=== PATIENT | male | born 1955 | race Caucasian/White ===

== ENCOUNTER 2017-12-14 11:46 | Observation (INO) | payer MEDICARE ==
[~2017-12-14] VITALS: Ht 172.7 cm; Wt 66.1 kg
--- NOTE | ~2017-12-14 | CN ---
PATIENT NAME:CATHERINE BETTS MEDICAL RECORD: [id number] : 59 LOCATION:D.M2 D.2140 ADMIT DATE: 12/15/17 ACCOUNT: [id number] CONSULTING PHYSICIAN: ALEKS MORRELL MD REFERRING PHYSICIAN: AR NOVA MD DATE OF CONSULTATION: 12/15/2017 CARDIOLOGY CONSULTATION DIAGNOSES: 1. Elevated troponin. 2. Multiple pain medications for chronic pain syndrome. 3. Smoking. HISTORY OF PRESENT ILLNESS: This is a gentleman who is followed by Dr. Shay for pain management, who has had adjustment in his medications recently. He had the addition of fentanyl to his multiple other medications for pain. He was brought in with decreased consciousness. Troponin was found to be elevated. He denies any chest pain or chest discomfort. His EKG is with no ST-T abnormalities. He has had no dysrhythmias. PHYSICAL EXAMINATION: GENERAL APPEARANCE: Well-nourished, well-developed, appears stated age. Level of distress, comfortable. PSYCHIATRIC: Mental status, alert, normal affect. Orientation, oriented to time, place and person. EYES: Lids and conjunctiva, noninjected. No discharge, no pallor. ENT: Lips, teeth, gums, normal dentition. Oropharynx, no cyanosis, no pallor. NECK: Carotid arteries, bilateral normal upstroke, no bruits, no thrills. JUGULAR VEINS: No jugular venous pressure or distention. CERVICAL LYMPH NODES: Nontender, nonenlarged. THYROID: Not enlarged. Nontender. No nodules. LUNGS: Respiratory effort, unlabored. CHEST: Normal curvature. No thoracic deformity. No chest wall tenderness. Percussion, resonant. Auscultation, clear. No wheezes, no rales, no rhonchi. CARDIOVASCULAR: Precordial exam, nondisplaced. No heaves or pericardial thrills. Rate and rhythm, regular. Heart sounds, normal S1, normal S2. No S3, no gallop, no rub. Systolic murmur, not heard. Diastolic murmur, not heard. EXTREMITIES: No cyanosis, no edema. Peripheral pulses, full and equal in all extremities, except as noted. No bruits appreciated. ABDOMEN: Soft, nondistended. Normal aorta. No bruit. Nontender. No masses. Liver, nontender, no hepatomegaly. Spleen, nontender, no splenomegaly. MUSCULOSKELETAL: No joint tenderness. No joint swelling. No erythema. NEUROLOGICAL: Normal gait, normal strength, normal tone. SKIN: Warm and dry. REVIEW OF SYSTEMS: The patient reports easy bruising but reports no swollen glands. The patient reports no fever, no night sweats, no significant weight gain, no significant weight loss. No significant exercise tolerance. The patient reports no dry eyes, no irritation, no vision change. Patient reports no difficulty hearing and no ear pain. Patient reports no frequent nose bleeds or nose and sinus problems. Patient reports on arm pain on exertion. No shortness of breath while lying down. No history of heart murmur. Patient reports no cough, no wheezing or coughing up blood. Patient reports no abdominal pain, no vomiting. Normal appetite. No diarrhea and not vomiting CONSULT REPORT [id number] CATHERINE BETTS blood. No nausea and no constipation. Patient reports no incontinence. No difficulty urinating. No hematuria. No increased frequency. Patient reports no muscle aches. No weakness, no arthralgias, no back pain. No swelling of the extremities. Patient reports no abnormal mole, no jaundice, no rashes. Reports no loss of consciousness. No weakness and no numbness. No seizures, dizziness, or headaches. The patient reports no depression, no sleep disturbance, feeling safe in a relationship and no alcohol abuse. Patient reports on fatigue. Reports no runny nose or sinus pressure. No itching, no hives, and no frequent sneezing. OVERALL IMPRESSION: Most likely this is an anoxic injury from decreased consciousness from over medication with pain medications. All pain medications are being held at this time. We will get an echocardiogram for LV function. Other than that, no other cardiac workup treatment is necessary. TRANSINT:[id number] Voice Confirmation ID: [id number] DOCUMENT ID: [id number] ALEKS MORRELL MD at 0928 CC: [id number] DICTATION DATE: 12/15/17 1008 PARA MACHINE OPERATOR: 12/15/17 1017 [place] [address]
--- NOTE | ~2017-12-14 | EC ---
PATIENT:CATHERINE BETTS DATE OF SERVICE: 12/14/17 SEX: M MEDICAL RECORD: [id number] DATE OF : 59 LOCATION:D.M2 D.214 AGE OF PATIENT: 62 ADMISSION DATE: 12/14/17 REFERRING PHYSICIAN: INTERPRETING PHYSICIAN: ALEKS HAMMOND MD ECHOCARDIOGRAM REPORT ECHO CHARGES 4 ECHO COMPLETE CLINICAL DIAGNOSIS: ELEVATED TROPONIN ASSESS EF AND VALVES ECHOCARDIOGRAPHIC MEASUREMENTS (adult normal given) AC root (d.<3.7cm) 3.8 cm LV Septum d (<1.2 cm> 1.2 cm Valve Excursion 1.8 cm LV Septum (systole) 1.4 cm Left Atria (s.<4.0cm> 3.3 cm LVPW d(<1.2cm) 1.8 cm RV (d.<2.3cm) 3.3 cm LVPW (sytole) 1.9 cm LV diastole(<5.6CM) 5.0 cm MV E-F(>70mm/sec) cm LV systole 3.8 cm LVOT Diameter 2.1 cm MV exc.(>10mm) cm Est.ejection fraction (50-75%) % Pericardial Effusion N DOPPLER: LVIT cm/sec A 119 cm/sec E 82.0 cm/sec LA cm/sec RVSP 41 mmHg LVOT 161 cm/sec AOP1/2T m/s Asc. Ao 194 cm/sec RVOT cm/sec RA cm/sec PA cm/sec AV Gradient Peak 15.05mmHg AV Mean 8.08 mmHg AV Area 2.9 cm MV Gradient Peak 6.99 mmHg MV Mean 2.46 mmHg MV Area cm COMMENTS: Continuous Process Machine Operator: Jace LEIGH School Examiner: 1 Dr. Hammond TAPE# PACS DATE OF SERVICE: 12/15/2017 Echocardiogram FINDINGS: 1. Left ventricular chamber size is within normal limits. Left ventricular systolic function is normal. Overall ejection fraction estimated at 60%. 2. Left atrium, right atrium, and right ventricle chamber sizes are within normal limits. 3. Valvular structures have normal structure and motion. ECHOCARDIOGRAM REPORT [id number] CATHERINE BETTS 4. Doppler interrogation reveals only trace to mild tricuspid regurgitation, no other valvular insufficiency or stenosis. 5. No evidence of pericardial effusion or left ventricular thrombus. TRANSINT:[id number] Voice Confirmation ID: [id number] DOCUMENT ID: [id number] ALEKS HAMMOND MD at 1148 CC: [id number] DICTATION DATE: 12/15/17 1244 CVICU RN: 12/15/17 1300 DIS IN 12/17/17 [place] [id number] [place] [id number]
[~2017-12-14 11:46] MED LIST: HYDROCODONE-APA1 TAB PO; LEVAQUIN750 MG PO; LISINOPRIL10 MG PO; PRINZIDE 20-251 TA1 PO; PROTONIX40 MG PO; ROBAXIN500 MG PO; TEMAZEPAM30 MG PO; XANAX0.5 MG PO
[2017-12-14 12:57] LABS: AMORPHOUS SEDIMENT >1+ /lpf (NONE SEEN); APPEARANCE CLOUDY (CLEAR); BACTERIA FEW /hpf (NONE SEEN); BILIRUBIN NEGATIVE (NEGATIVE); COLOR YELLOW (YELLOW); EPITHELIAL CELLS 0-5 /hpf (0-5); GLUCOSE NEGATIVE (NEGATIVE); KETONE NEGATIVE (NEGATIVE); NITRITE NEGATIVE (NEGATIVE); PROTEIN TRACE mg/dL (NEGATIVE); SPECIFIC GRAVITY 1.015 (1.005-1.020); UROBILINOGEN NORMAL (NORMAL); WHITE CELLS - URINE RARE /hpf (0-5)
[2017-12-14 12:59] LABS: UDS - AMPHET NEGATIVE QUAL (NEGATIVE); UDS - BARB NEGATIVE QUAL (NEGATIVE); UDS - BENZO POSITIVE QUAL (NEGATIVE); UDS - COCAINE NEGATIVE QUAL (NEGATIVE); UDS - OPIATE POSITIVE QUAL (NEGATIVE); UDS - PCP NEGATIVE QUAL (NEGATIVE); UDS - THC NEGATIVE QUAL (NEGATIVE)
[2017-12-14 13:00] LABS: ALBUMIN 3.7 g/dL (3.4-5.0); ALKALINE PHOSPHATASE 116 U/L (46-116); ALT (SGPT) 35 U/L (10-68); BILIRUBIN - TOTAL 0.51 mg/dL (0.2-1.3); CALC OSMOLALITY 278 mosm/kg (275-300); CALCIUM 9.2 mg/dL (8.5-10.1); CHLORIDE - SERUM 101 mmol/L (98-107); GLUCOSE 130 mg/dL (74-106); POTASSIUM - SERUM 3.7 mmol/L (3.5-5.1); PROTEIN - SERUM 8.5 g/dL (6.4-8.2); SODIUM 138 mmol/L (136-145); UREA NITROGEN 14 mg/dL (7-18); eGFR NON AFRICAN AMERICAN 81 mL/min (90-120)
[2017-12-14 13:11] LABS: LIPASE 52 U/L (73-393); PRO BNP 1139 pg/mL (0-125)
[2017-12-14 13:17] LABS: TROPONIN-I 0.127 ng/mL (0.000-0.060)
[2017-12-14 13:34] LABS: HEMATOCRIT 42.5 % (42.0-54.0); HEMOGLOBIN 14.4 g/dL (13.5-17.5); MCH 31.2 pg (26.0-34.0); MCHC 33.9 g/dL (31.0-37.0); RBC 4.62 10x6/uL (4.20-6.10); RDW 12.6 % (11.5-14.5); WBC 30.2 10x3/uL (4.8-10.8)
[2017-12-14 13:35] LABS: PLATELET COUNT 492 10x3/uL (130-400)
[2017-12-14 13:37] LABS: LYMPHOCYTES 7 % (15-50); MONOCYTES 7 % (2-11); NEUTROPHILS 81 % (40-80); PLATELET ESTIMATE INCREASED
[2017-12-14] MEDS ORDERED: DURAGESIC1 PATCH .1 TRANSDERM (15:58)
[2017-12-14] MEDS ORDERED: NORCO 7.5/325 T1 TA1 PO (15:58)
[2017-12-14] MEDS ORDERED: VALIUM10 MG PO (16:01)
[2017-12-14] MEDS ORDERED: ZOLOFT50 MG PO (16:02)
[2017-12-14 16:03] VITALS: BP 168/84; Ht 172.7 cm; Wt 66.1 kg
[2017-12-14 19:00] VITALS: BP 145/65
[2017-12-14 22:45] LABS: APPEARANCE CLEAR (CLEAR); COLOR YELLOW (YELLOW); SPECIFIC GRAVITY 1.015 (1.005-1.020)
[2017-12-14 22:46] LABS: AMORPHOUS SEDIMENT <1+ /lpf (NONE SEEN); BACTERIA MODERATE /hpf (NONE SEEN); BILIRUBIN NEGATIVE (NEGATIVE); EPITHELIAL CELLS 0-5 /hpf (0-5); GLUCOSE NEGATIVE (NEGATIVE); HYALINE CAST 0-5 /lpf (NONE SEEN); KETONE NEGATIVE (NEGATIVE); MUCUS <1+ /lpf (NONE SEEN); NITRITE NEGATIVE (NEGATIVE); PROTEIN NEGATIVE (NEGATIVE); SPERMATOZOA RARE /hpf (NONE SEEN); UROBILINOGEN NORMAL (NORMAL); WHITE CELLS - URINE OCC /hpf (0-5)
[2017-12-15] VITALS: BP 162/75
[2017-12-15 04:00] VITALS: BP 144/68
[2017-12-15 07:44] LABS: HEMATOCRIT 36.2 % (42.0-54.0); HEMOGLOBIN 12.4 g/dL (13.5-17.5); LYMPHOCYTES 17.2 % (15-50); MCH 31.2 pg (26.0-34.0); MCHC 34.3 g/dL (31.0-37.0); MEAN PLATELET VOLUME 9.9 fL (7.4-10.4); NEUTROPHILS 75.4 % (40-80); RBC 3.98 10x6/uL (4.20-6.10)
[2017-12-15 07:48] LABS: PLATELET COUNT 347 10x3/uL (130-400); WBC 15.8 10x3/uL (4.8-10.8)
[2017-12-15 08:37] LABS: ALBUMIN 3.1 g/dL (3.4-5.0); ALKALINE PHOSPHATASE 90 U/L (46-116); ALT (SGPT) 38 U/L (10-68); BILIRUBIN - TOTAL 0.44 mg/dL (0.2-1.3); CALC OSMOLALITY 277 mosm/kg (275-300); CALCIUM 8.4 mg/dL (8.5-10.1); CHLORIDE - SERUM 104 mmol/L (98-107); CREATININE - SERUM 0.8 mg/dL (0.6-1.3); GLUCOSE 101 mg/dL (74-106); PROTEIN - SERUM 6.6 g/dL (6.4-8.2); SODIUM 140 mmol/L (136-145); UREA NITROGEN 11 mg/dL (7-18); eGFR NON AFRICAN AMERICAN > 90 mL/min (90-120)
[2017-12-15 09:25] VITALS: BP 132/84
[2017-12-15 11:46] VITALS: BP 132/80
[2017-12-15 16:11] VITALS: BP 126/88
[2017-12-15 20:00] VITALS: BP 118/54
[2017-12-16] VITALS: BP 112/58
[2017-12-16 04:00] VITALS: BP 118/60
[2017-12-16 06:36] LABS: BASOPHILS 0.3 % (0-2); EOSINOPHILS 0.5 % (0-7); IMMATURE GRANULOCYTES 0.2 % (0-5); LYMPHOCYTES 20.6 % (15-50); MCH 30.8 pg (26.0-34.0); MCHC 33.3 g/dL (31.0-37.0); MCV 92.4 fL (80.0-100.0); MEAN PLATELET VOLUME 10.5 fL (7.4-10.4); MONOCYTES 11.7 % (2-11); NEUTROPHILS 66.7 % (40-80); PLATELET COUNT 333 10x3/uL (130-400); RBC 3.57 10x6/uL (4.20-6.10); RDW 12.4 % (11.5-14.5); WBC 12.7 10x3/uL (4.8-10.8)
[2017-12-16 07:05] LABS: ALBUMIN 2.9 g/dL (3.4-5.0); ALKALINE PHOSPHATASE 82 U/L (46-116); ALT (SGPT) 40 U/L (10-68); CALC OSMOLALITY 280 mosm/kg (275-300); CALCIUM 8.3 mg/dL (8.5-10.1); CARBON DIOXIDE 25.9 mmol/L (21.0-32.0); CHLORIDE - SERUM 107 mmol/L (98-107); CREATININE - SERUM 0.6 mg/dL (0.6-1.3); GLUCOSE 92 mg/dL (74-106); POTASSIUM - SERUM 3.1 mmol/L (3.5-5.1); PROTEIN - SERUM 6.5 g/dL (6.4-8.2); SODIUM 142 mmol/L (136-145); eGFR NON AFRICAN AMERICAN > 90 mL/min (90-120)
[2017-12-16 07:06] LABS: UREA NITROGEN 6 mg/dL (7-18)
[2017-12-16 16:00] VITALS: BP 111/45
[2017-12-16 19:00] VITALS: BP 83/51
[2017-12-17 04:00] VITALS: BP 148/63
[2017-12-17 05:28] LABS: BASOPHILS 0.2 % (0-2); EOSINOPHILS 0.9 % (0-7); HEMATOCRIT 31.5 % (42.0-54.0); HEMOGLOBIN 10.5 g/dL (13.5-17.5); IMMATURE GRANULOCYTES 0.2 % (0-5); LYMPHOCYTES 15.9 % (15-50); MCHC 33.3 g/dL (31.0-37.0); MCV 92.9 fL (80.0-100.0); MEAN PLATELET VOLUME 10.9 fL (7.4-10.4); MONOCYTES 9.9 % (2-11); NEUTROPHILS 72.9 % (40-80); PLATELET COUNT 345 10x3/uL (130-400); RBC 3.39 10x6/uL (4.20-6.10); RDW 12.6 % (11.5-14.5); WBC 12.3 10x3/uL (4.8-10.8)
[2017-12-17 05:43] LABS: ALBUMIN 2.8 g/dL (3.4-5.0); ALKALINE PHOSPHATASE 78 U/L (46-116); ALT (SGPT) 43 U/L (10-68); BILIRUBIN - TOTAL 0.32 mg/dL (0.2-1.3); CALCIUM 8.5 mg/dL (8.5-10.1); CARBON DIOXIDE 22.9 mmol/L (21.0-32.0); CHLORIDE - SERUM 106 mmol/L (98-107); CREATININE - SERUM 0.7 mg/dL (0.6-1.3); GLUCOSE 110 mg/dL (74-106); PROTEIN - SERUM 6.6 g/dL (6.4-8.2); SODIUM 140 mmol/L (136-145); eGFR NON AFRICAN AMERICAN > 90 mL/min (90-120)
[2017-12-17 05:59] LABS: CALC OSMOLALITY 276 mosm/kg (275-300); POTASSIUM - SERUM 2.9 mmol/L (3.5-5.1); UREA NITROGEN 4 mg/dL (7-18)
[2017-12-17 07:44] VITALS: BP 144/79
[2017-12-17] MEDS ORDERED: LEVAQUIN750 MG PO (10:01)
== END 2017-12-17 10:55 | disposition home or self-care (01) ==
LOC: D.ER 11:46 → D.M2 13:46 → OBSVTIME 13:46 → D.EDHOLD 13:46 → D.M2 14:36
PROVIDERS: Emergency Medicine; Family Medicine
DX: T40.4X1A Poisoning by other synthetic narcotics, accidental (unintentional), initial encounter (principal); G89.4 Chronic pain syndrome; R79.89 Other specified abnormal findings of blood chemistry; I10 Essential (primary) hypertension; F17.203 Nicotine dependence unspecified, with withdrawal; K74.60 Unspecified cirrhosis of liver; D64.9 Anemia, unspecified; J18.9 Pneumonia, unspecified organism

== ENCOUNTER 2019-04-27 10:48 | Inpatient (IN) | payer MEDICARE ==
[2019-04-27] VITALS (8 sets, daily range): BP systolic 165–208; BP diastolic 50–114; Ht 172.7 cm; Wt 78.6 kg
[~2019-04-27] VITALS: Ht 172.7 cm; Wt 78.6 kg
--- NOTE | ~2019-04-27 | CN ---
PATIENT NAME:CATHERINE BETTS MEDICAL RECORD: [id number] : 59 LOCATION:D.MS Buck2226 ADMIT DATE: 04/27/19 ACCOUNT: [id number] CONSULTING PHYSICIAN: ALEKS MORRELL MD REFERRING PHYSICIAN: IHSAN SALINAS MD DATE OF CONSULTATION: 04/28/2019 DIAGNOSES: 1. Non-Q-wave myocardial infarction. 2. Depression. 3. Hypertension. 4. Smoking history. HISTORY OF PRESENT ILLNESS: This is a gentleman who was found down by his stepson. He has an elevated troponin at 2.33. He denies any chest pain or chest discomfort. He denies shortness of breath. His EKG is with no ST-T abnormalities. Previously, he had an echocardiogram with normal ejection fraction. This was in November. No history of ischemic heart disease. PHYSICAL EXAMINATION: GENERAL APPEARANCE: Well-nourished, well-developed, appears stated age. Level of distress, comfortable. PSYCHIATRIC: Mental status, alert, normal affect. Orientation, oriented to time, place and person. EYES: Lids and conjunctiva, noninjected. No discharge, no pallor. ENT: Lips, teeth, gums, normal dentition. Oropharynx, no cyanosis, no pallor. NECK: Carotid arteries, bilateral normal upstroke, no bruits, no thrills. JUGULAR VEINS: No jugular venous pressure or distention. CERVICAL LYMPH NODES: Nontender, nonenlarged. THYROID: Not enlarged. Nontender. No nodules. LUNGS: Respiratory effort, unlabored. CHEST: Normal curvature. No thoracic deformity. No chest wall tenderness. Percussion, resonant. Auscultation, clear. No wheezes, no rales, no rhonchi. CARDIOVASCULAR: Precordial exam, nondisplaced. No heaves or pericardial thrills. Rate and rhythm, regular. Heart sounds, normal S1, normal S2. No S3, no gallop, no rub. Systolic murmur, not heard. Diastolic murmur, not heard. EXTREMITIES: No cyanosis, no edema. Peripheral pulses, full and equal in all extremities, except as noted. No bruits appreciated. ABDOMEN: Soft, nondistended. Normal aorta. No bruit. Nontender. No masses. Liver, nontender, no hepatomegaly. Spleen, nontender, no splenomegaly. MUSCULOSKELETAL: No joint tenderness. No joint swelling. No erythema. NEUROLOGICAL: Normal gait, normal strength, normal tone. SKIN: Warm and dry. OVERALL IMPRESSION: Elevated troponin, non-Q-wave myocardial infarction, very well may be demand ischemia from physiologic stress. At this time, we will just repeat the echo to make sure his ejection fraction remains stable. No other real cardiac workup or treatment is necessary as now his heart rate is 60 and systolic blood pressure is 100. TRANSINT:[id number] Voice Confirmation ID: [id number] DOCUMENT ID: [id number] CONSULT REPORT [id number] CATHERINE BETTS [place] MD CC: [id number] DICTATION DATE: 04/28/19 1003 CITY DIRECTOR: 04/28/19 1355 ADM IN [facility] [address] [place] [address]
--- NOTE | ~2019-04-27 | EC ---
PATIENT:CATHERINE BETTS DATE OF SERVICE: 04/27/19 SEX: M MEDICAL RECORD: [id number] DATE OF : 59 LOCATION:D.MS [place] AGE OF PATIENT: 63 ADMISSION DATE: 04/27/19 REFERRING PHYSICIAN: INTERPRETING PHYSICIAN: ALEKS HAMMOND MD ECHOCARDIOGRAM REPORT ECHO CHARGES 4 ECHO COMPLETE Date: 04/27/19 CLINICAL DIAGNOSIS: ELEVATED TROPONIN ECHOCARDIOGRAPHIC MEASUREMENTS (adult normal given) AC root (d.<3.7cm) 3.0 cm LV Septum d (<1.2 cm> 0.8 cm Valve Excursion 1.7 cm LV Septum (systole) 1.5 cm Left Atria (s.<4.0cm> 4.1 cm LVPW d(<1.2cm) 1.2 cm RV (d.<2.3cm) 2.5 cm LVPW (sytole) 1.6 cm LV diastole(<5.6CM) 5.4 cm MV E-F(>70mm/sec) cm LV systole 3.3 cm LVOT Diameter 2.0 cm MV exc.(>10mm) cm Est.ejection fraction (50-75%) % DOPPLER: LVIT cm/sec A 93.0 cm/sec E 58.0 cm/sec LA cm/sec RVSP 42.1 mmHg LVOT 79.0 cm/sec AOP1/2T m/s Asc. Ao 136 cm/sec RVOT 66.0 cm/sec RA cm/sec PA 86.0 cm/sec AV Gradient Peak 7.4 mmHg AV Mean 3.5 mmHg AV Area 2.2 cm MV Gradient Peak 5.4 mmHg MV Mean 1.9 mmHg MV Area cm COMMENTS: Home Care Associate: Antwon YUSUFOE Sorter Upholstery Parts: 1 Dr. Hammond TAPE# PACS Pericardial Effusion N DATE OF SERVICE: 04/27/2019 FINDINGS: 1. Left ventricular chamber size is within normal limits. Left ventricular systolic function is normal. Overall ejection fraction is estimated at 55%. 2. Left atrium is enlarged at 4.1 cm. Right atrium and right ventricular chamber sizes are within normal limit. 3. Valvular structures have normal structure and motion. 4. Doppler interrogation reveals moderate mitral regurgitation and [id number] tricuspid regurgitation. No other valvular insufficiency or ECHOCARDIOGRAM REPORT [id number] ALPESH,CATHERINE DIGNA stenosis. Pulmonary systolic pressure is estimated at 42 mmHg. 5. No evidence of pericardial effusion or left ventricular thrombus. TRANSINT:[id number] Voice Confirmation ID: [id number] DOCUMENT ID: [id number] ALEKS HAMMOND MD CC: [id number] DICTATION DATE: 04/27/191735 COOK ICE CREAM: 04/27/191917 ADM IN [facility] [address] [place] [id number]
[~2019-04-27 10:48] MED LIST changes: +DURAGESIC1 PATCH .1 TRANSDERM; +NORCO 7.5/325 T1 TA1 PO; +VALIUM10 MG PO; +ZOLOFT50 MG PO
[2019-04-27] MEDS ORDERED: HYDROCHLOROTHIA25 MG PO (11:02)
--- NOTE | 2019-04-27 11:21 | NUR ---
RT AT BEDSIDE FOR ABG'S.
--- NOTE | 2019-04-27 11:37 | NUR ---
FAMILY AT BEDSIDE.
[2019-04-27 11:50] LABS: HEMATOCRIT 37.2 % (42.0-54.0); HEMOGLOBIN 12.8 g/dL (13.5-17.5); MCH 31.4 pg (26.0-34.0); MCHC 34.4 g/dL (31.0-37.0); MCV 91.4 fL (80.0-100.0); MEAN PLATELET VOLUME 9.6 fL (7.4-10.4); PLATELET COUNT 436 10x3/uL (130-400); RBC 4.07 10x6/uL (4.20-6.10); RDW 12.8 % (11.5-14.5); WBC 23.4 10x3/uL (4.8-10.8)
[2019-04-27 12:02] LABS: ALBUMIN 3.7 g/dL (3.4-5.0); ALKALINE PHOSPHATASE 99 U/L (46-116); ALT (SGPT) 34 U/L (10-68); BILIRUBIN - TOTAL 0.21 mg/dL (0.2-1.3); CALC OSMOLALITY 283 mosm/kg (275-300); CALCIUM 9.4 mg/dL (8.5-10.1); CARBON DIOXIDE 22.9 mmol/L (21.0-32.0); CHLORIDE - SERUM 108 mmol/L (98-107); CREATININE - SERUM 1.2 mg/dL (0.6-1.3); GLUCOSE 107 mg/dL (74-106); POTASSIUM - SERUM 3.7 mmol/L (3.5-5.1); PROTEIN - SERUM 8.2 g/dL (6.4-8.2); SODIUM 142 mmol/L (136-145); UREA NITROGEN 16 mg/dL (7-18); eGFR NON AFRICAN AMERICAN 65 mL/min (90-120)
[2019-04-27 12:03] LABS: APPEARANCE HAZY (CLEAR); COLOR YELLOW (YELLOW); SPECIFIC GRAVITY 1.015 (1.005-1.020)
[2019-04-27 12:04] LABS: BACTERIA FEW /hpf (NONE SEEN); BILIRUBIN NEGATIVE (NEGATIVE); EPITHELIAL CELLS 0-5 /hpf (0-5); GLUCOSE NEGATIVE (NEGATIVE); KETONE NEGATIVE (NEGATIVE); MUCUS <1+ /lpf (NONE SEEN); NITRITE NEGATIVE (NEGATIVE); PROTEIN NEGATIVE (NEGATIVE); RED CELLS - URINE 0-5 /hpf (0-5); UROBILINOGEN NORMAL (NORMAL); WHITE CELLS - URINE RARE /hpf (0-5)
[2019-04-27 12:11] LABS: UDS - AMPHET NEGATIVE QUAL (NEGATIVE); UDS - BARB NEGATIVE QUAL (NEGATIVE); UDS - BENZO POSITIVE QUAL (NEGATIVE); UDS - COCAINE NEGATIVE QUAL (NEGATIVE); UDS - OPIATE POSITIVE QUAL (NEGATIVE); UDS - PCP NEGATIVE QUAL (NEGATIVE); UDS - THC NEGATIVE QUAL (NEGATIVE)
[2019-04-27 12:19] LABS: APTT 29.7 SECONDS (22.8-39.4); INR 1.05 (0.85-1.17); PROTIME 13.2 SECONDS (11.6-15.0)
[2019-04-27 12:22] LABS: CKMB 30.1 U/L (0.0-3.6)
[2019-04-27 12:23] LABS: CREATINE KINASE 2377 UL (21-232)
[2019-04-27 12:24] LABS: TROPONIN-I 0.349 ng/mL (0.000-0.060)
--- NOTE | 2019-04-27 12:42 | NUR ---
WHILE ROLLING PT, PT OPENS EYES ET ASKS WHERE HE IS. PT TOLD IS AT [facility]-ED ET PT ASKS HOW HE GOT HERE. PT WAS TOLD BY AMBULANCE. PT STATES OK, SHAKES HEAD ET THEN CLOSES EYES. ERP UPDATED.
[2019-04-27 13:04] LABS: BASOPHILS 1 % (0-2); LYMPHOCYTES 14 % (15-50); MONOCYTES 13 % (2-11); NEUTROPHILS 71 % (40-80); PLATELET ESTIMATE INCREASED
--- NOTE | 2019-04-27 13:43 | NUR ---
VANCO INFUSION COMPLETE AT 1326.
--- NOTE | 2019-04-27 13:46 | NUR ---
ZOSYN INFUSED AT 1342.
[2019-04-27 14:10] LABS: % SATURATION 16 % (15-55); IRON 59 ug/dl (35-150); TOTAL IRON BIND CAPACITY 357 ug/dl (260-445); UNSAT IRON BIND CAPACITY 298 ug/dl (150-375)
[2019-04-27 16:39] LABS: CKMB 43.9 U/L (0.0-3.6)
[2019-04-27 16:50] LABS: CREATINE KINASE 4654 UL (21-232)
[2019-04-27 16:51] LABS: TROPONIN-I 0.826 ng/mL (0.000-0.060)
--- NOTE | 2019-04-27 17:07 | NUR ---
REPORT CALLED TO MED SURG. VSS AT TRANSFER.
--- NOTE | 2019-04-27 19:30 | NUR ---
PT LYING IN BED RESTING, OPENS EYES AND FOLLOWS COMMANDS ONCE SHAKEN AWAKE. NON VERBAL. IV LEFT UPPER ARM INFUSING LR @ 125. WITHOUT DISTRESS OR NEEDS. CL IN REACH, WILL CTM
--- NOTE | 2019-04-27 20:20 | NUR ---
SPOKE WITH DAE PRATT APN ABOUT ELEVATED TROPONIN, CALLED DR MORRELL AND READ RESULTS OF CARDIAC ENZYMES. NO NEW ORDERS. WILL CTM
[2019-04-27 21:01] LABS: CKMB 31.1 U/L (0.0-3.6)
[2019-04-27 21:03] LABS: CREATINE KINASE 4965 UL (21-232)
[2019-04-27 21:04] LABS: TROPONIN-I 1.602 ng/mL (0.000-0.060)
--- NOTE | 2019-04-27 22:15 | NUR ---
PT ANSWERING YES AND NO QUESTIONS AT THIS TIME. STATES HE IS "OK" WHEN ASKED IF HE NEEDS ANYTHING AND HOW HE IS FEELING. WILL CTM
[2019-04-28] VITALS: BP 177/67
--- NOTE | 2019-04-28 03:00 | NUR ---
PT INCTONENT OF BOWEL AND BLADDER AT THIS TIME. BED BATH GIVEN, FULL LINEN CHANGE. LONNIE ON, CL IN REACH. WILL CTM
[2019-04-28 04:00] VITALS: BP 107/59
[2019-04-28 04:35] LABS: CKMB 22.6 U/L (0.0-3.6)
[2019-04-28 04:48] LABS: CREATINE KINASE 5860 UL (21-232)
[2019-04-28 04:49] LABS: TROPONIN-I 2.331 ng/mL (0.000-0.060)
[2019-04-28 06:55] LABS: ALKALINE PHOSPHATASE 72 U/L (46-116); ALT (SGPT) 38 U/L (10-68); BILIRUBIN - TOTAL 0.41 mg/dL (0.2-1.3); CALC OSMOLALITY 293 mosm/kg (275-300); CALCIUM 8.7 mg/dL (8.5-10.1); CHLORIDE - SERUM 112 mmol/L (98-107); GLUCOSE 127 mg/dL (74-106); POTASSIUM - SERUM 3.7 mmol/L (3.5-5.1); PROTEIN - SERUM 6.1 g/dL (6.4-8.2); SODIUM 147 mmol/L (136-145); UREA NITROGEN 12 mg/dL (7-18); eGFR NON AFRICAN AMERICAN 81 mL/min (90-120)
[2019-04-28 07:17] LABS: BASOPHILS 0.2 % (0-2); EOSINOPHILS 0.1 % (0-7); HEMATOCRIT 32.5 % (42.0-54.0); HEMOGLOBIN 11.1 g/dL (13.5-17.5); IMMATURE GRANULOCYTES 0.3 % (0-5); LYMPHOCYTES 12.8 % (15-50); MCH 31.1 pg (26.0-34.0); MCHC 34.2 g/dL (31.0-37.0); MEAN PLATELET VOLUME 9.8 fL (7.4-10.4); MONOCYTES 9.8 % (2-11); NEUTROPHILS 76.8 % (40-80); PLATELET COUNT 352 10x3/uL (130-400); RBC 3.57 10x6/uL (4.20-6.10); RDW 12.9 % (11.5-14.5)
[2019-04-28 07:18] LABS: WBC 15.6 10x3/uL (4.8-10.8)
--- NOTE | 2019-04-28 07:45 | NUR ---
PT RESTED IN BED WITH EYES CLOSED, AROUSED TO SPEECH. DENIES NEEDS AT THIS TIME. BED LOW, CALL LIGHT IN REACH, RAILS UP X 2. WILL CONTINUE TO MONITOR.
[2019-04-28 08:47] VITALS: BP 100/70
[2019-04-28 13:37] LABS: CKMB 15.3 U/L (0.0-3.6)
[2019-04-28 13:40] LABS: CREATINE KINASE 5905 UL (21-232); TROPONIN-I 2.548 ng/mL (0.000-0.060)
[2019-04-28 14:10] VITALS: BP 139/71
[2019-04-28 16:03] VITALS: BP 162/90
--- NOTE | 2019-04-28 16:15 | NUR ---
PATIENT CONFUSED STATES "I NEED TO GO HOME TO TAKE CARE OF MY ", HIS IS NOT LIVING. TRYING TO GET OUT OF BED TO LEAVE. CONTACTED SHIRA BILLINGSLEY APN, GAVE 10 MG GEODON INJ PER HER ORDERS. BED LOW, CALL LIGHT IN REACH, RAILS UP X 3, WILL CONTINUE TO MONITOR.
--- NOTE | 2019-04-28 19:30 | NUR ---
PT CONFUSED AND OUT OF BED SEVERAL TIMES SINCE 1900. PT STATES HE WANTS TO GO HOME. REORIENTED PATIENT TO SITUATION. PT STATES HE IS NOT CONFUSED. ATTEMPTED TO EXPLAIN SITUATION TO PATIENT. RETURNED BACK TO BED.
--- NOTE | 2019-04-28 19:45 | NUR ---
PT CONTINUALLY OUT OF BED AND NONCOMPLIANT. REMAINS CONFUSED. CALL TO TAMIE JASON APRN AND RECEIVED ORDER OF GEODON 10MG.
[2019-04-28 20:00] VITALS: BP 174/73
--- NOTE | 2019-04-28 21:00 | NUR ---
PT CONTINUALLY OUT OF BED. REMAINS CONFUSED AND DISORIENTED. INCONTINENT OF BOWEL AND BLADDER X4 IN THE PAST HOUR. LIGHT AND LOOSE IN COLOR BUT DOES NOT HAVE ODOR. LINEN CHANGE AND GOWN CHANGE PERFORMED. RETURNED PATIENT BACK TO BED.
--- NOTE | 2019-04-28 23:00 | NUR ---
PT CONTINUES TO CLIMB OUT OF BED. ENTIRE NURSING UNIT ATTEMPTING TO ASSIST PATIENT. ALL FALL PRECAUTIONS REMAIN IN PLACE. CALL TO GRIEVANCE MANAGER AND EXPLAINED SITUATION. NEW ORDER OF HALDOL TO BE GIVEN.
--- NOTE | 2019-04-29 02:33 | NUR ---
PT RESTING WITH NO SIGNS OF DISTRESS NOTED. UNLABORED RESPIRATIONS. CPOC.
[2019-04-29 04:00] VITALS: BP 116/66
[2019-04-29 05:03] LABS: BASOPHILS 0.2 % (0-2); EOSINOPHILS 0.5 % (0-7); HEMATOCRIT 30.9 % (42.0-54.0); HEMOGLOBIN 10.4 g/dL (13.5-17.5); IMMATURE GRANULOCYTES 0.3 % (0-5); LYMPHOCYTES 14.7 % (15-50); MCH 30.7 pg (26.0-34.0); MCHC 33.7 g/dL (31.0-37.0); MCV 91.2 fL (80.0-100.0); MEAN PLATELET VOLUME 9.5 fL (7.4-10.4); MONOCYTES 8.4 % (2-11); NEUTROPHILS 75.9 % (40-80); PLATELET COUNT 338 10x3/uL (130-400); RBC 3.39 10x6/uL (4.20-6.10); RDW 13.1 % (11.5-14.5); WBC 16.9 10x3/uL (4.8-10.8)
[2019-04-29 06:01] LABS: CALC OSMOLALITY 287 mosm/kg (275-300); CALCIUM 8.3 mg/dL (8.5-10.1); CARBON DIOXIDE 24.5 mmol/L (21.0-32.0); CHLORIDE - SERUM 108 mmol/L (98-107); CKMB 10.5 U/L (0.0-3.6); CREATININE - SERUM 0.9 mg/dL (0.6-1.3); GLUCOSE 96 mg/dL (74-106); SODIUM 145 mmol/L (136-145); UREA NITROGEN 11 mg/dL (7-18); eGFR NON AFRICAN AMERICAN > 90 mL/min (90-120)
[2019-04-29 06:17] LABS: CREATINE KINASE 5600 UL (21-232)
[2019-04-29 06:18] LABS: POTASSIUM - SERUM 2.8 mmol/L (3.5-5.1)
[2019-04-29 08:29] VITALS: BP 144/69
--- NOTE | 2019-04-29 13:05 | NUR ---
PT UNABLE TO ANSWER SUICIDE SCREENING QUESTIONS APPROPRIATLY DUE TO CONFUSION. PT BECOMES AGITATED WHEN ASKED QUESTIONS AND STATES HE IS GOING HOME AND ALL OF THIS IS UNNECESSARY. HE HAS REMOVED HIS IV HIMSELF. GOTTEN DRESSED IN HIS PERSONAL CLOTHS. AND TOOK OFF WALKING OFF THE FLOOR. PT WAS HEADED TOWARDS OUTPATIENT. HE IS ON A LONNIE MAT, HOWEVER HE HAS FIGURED OUT HOW TO TURN OFF THE BED ALARM. STATES HE IS GOING HOME AND WE CAN NOT HOLD HIM HERE. THE HEART DR TOLD HIM HE COULD GO, SO HE IS GOING. WILL NOT RESTART IV OR ADMINISTER IV OR IM MEDS, DUE TO PT REFUSAL TO BE STUCK AT THIS TIME. AND DO NOT FEEL IT IS IN ANYONE BEST INTREST TO PUSH THE ISSUE AT RISK FOR AGITATING THE PT FURTHER. PSYCH HAS BEEN CONSULTED, BUT HAS NOT EVALUATED THE PT AT THIS TIME. WILL CONTINUE TO MONITOR UNTIL FURTHER ORDERS ARE GIVEN .
--- NOTE | 2019-04-29 15:12 | NUR ---
I have reviewed this patient and I concur with the Shift Assessment completed by the Licensed Practical Nurse today this shift.
[2019-04-29 18:19] VITALS: BP 155/82
--- NOTE | 2019-04-30 11:33 | CN ---
PATIENT NAME:CATHERINE BETTS MEDICAL RECORD: [id number] : 59 LOCATION:D.MS Buck2226 ADMIT DATE: 04/27/19 ACCOUNT: [id number] CONSULTING PHYSICIAN: KRYSTIAN MANZO MD REFERRING PHYSICIAN: IHSAN SALINAS MD DATE OF CONSULTATION: 04/29/2019 IDENTIFYING DATA: The patient is 63 years old and he is admitted to the hospital on a voluntary basis. CHIEF COMPLAINT: Mental status change. HISTORY OF PRESENT ILLNESS: The patient apparently was brought to the hospital because of some confusion. He has bacteremia and was found on the floor next to his bed. His stepson lives with him. Adriana looks to be well in middle-age. I am not sure about the social circumstances there, but adriana is in the room and he gives some extra history. The patient emphatically denies that he has a substance abuse problem. Nevertheless, he is taking hydrocodone 3 times a day, 30 mg of Restoril at bedtime and 1 mg of Ativan 3 times a day. He does not drink or he does not use any other drugs or at least they are not showing up on his urine drug screen and he in fact denies it. He denies psychotic symptoms, thoughts of harming himself or others and any history of mental illness or substance abuse. This may or may not be correct, but this is the history he gives and this history is backed up by the anirudhon who is in the room. MENTAL STATUS EXAMINATION: The patient is awake, alert, and oriented fully. His mood is euthymic. His affect appropriate. Thought processes are goal directed. Memory, concentration, and abstraction abilities are intact. He denies intent to harm himself or others as well as psychotic symptoms. ASSESSMENT: 1. Adjustment disorder with mixed emotional features. 2. Rule out polysubstance abuse. PLAN: I strongly suspect the patient was unconscious and on the floor because he had overtaken his hydrocodone and Ativan along with some temazepam. I would not recommend prescribing Restoril to a patient who is also taking a scheduled dose of a narcotic and a scheduled dose of a benzodiazepine. I am not sure why the patient is on a scheduled dose of hydrocodone. He says he has chronic muscular back pain, but obviously long-term use of a narcotic for chronic painful condition is in my opinion inappropriate and will simply cause him to become addicted to opiates. I would not recommend this be continued long-term. With regard to the Ativan occasionally certain anxiety disorders due need scheduled doses of an anxiolytic, but this patient says he has never seen a psychiatrist, so I would not feel comfortable having primary care prescribed this on an ongoing basis without the involvement of the psychiatrist who says he has a need for it. He emphatically denies any kind of substance abuse problem and of course for that reason thinks that any questions about substance abuse treatment is obscured. He has no evidence of acute or direct dangerousness. I strongly suspect that either substance abuse and/or polypharmacy is related to his current situation and the precipitating and an important component of what precipitated his admission. For reasons I briefly detail I would have serious reservations about what he is currently being prescribed and would herb counselor the prescriber to either restrict this or seek turning over the management of these conditions to either a pain specialist and/or a psychiatrist. There is CONSULT REPORT [id number] CATHERINE BETTS certainly no evidence of any kind of an issue that would prevent him from being discharged if he is stable from a medical standpoint. Stated differently, there are no psychiatric indications for additional treatment or additional stay. TRANSINT:[id number] Voice Confirmation ID: [id number] DOCUMENT ID: [id number] KRYSTIAN MANZO MD at 1133 CC: [id number] DICTATION DATE: 04/29/19 1510 STAGE TECHNICIAN: 04/29/19 1758 DIS IN 04/29/19 [facility] [address] [place] [address]
== END 2019-04-29 18:29 | disposition home or self-care (01) | DRG 91 ==
LOC: D.ER 10:48 → D.ICU 12:36 → D.MS 12:36 → D.ICU 14:16 → D.MS 17:08 → D.SDCHOLD 04-29 16:29 → D.MS 04-29 16:47
PROVIDERS: Family Medicine; ADMIT Internal Medicine Nephrology; ATTEND Internal Medicine Nephrology
DX: G92 Toxic encephalopathy (principal); I21.A1 Myocardial infarction type 2; R40.2212 Coma scale, best verbal response, none, at arrival to emergency department; I24.8 Other forms of acute ischemic heart disease; F17.203 Nicotine dependence unspecified, with withdrawal; M62.82 Rhabdomyolysis; T50.991A Poisoning by other drugs, medicaments and biological substances, accidental (unintentional), initial encounter; R09.02 Hypoxemia; I10 Essential (primary) hypertension; F32.9 Major depressive disorder, single episode, unspecified; E78.5 Hyperlipidemia, unspecified; D64.9 Anemia, unspecified; R40.2352 Coma scale, best motor response, localizes pain, at arrival to emergency department; R40.2132 Coma scale, eyes open, to sound, at arrival to emergency department

== ENCOUNTER 2019-05-18 10:53 | Outpatient (CLI) | payer MEDICARE ==
[~2019-05-18] VITALS: Ht 172.7 cm; Wt 72.7 kg
--- NOTE | ~2019-05-18 | HEMODYNAMI ---
PATIENT:CATHERINE BETTS MEDICAL RECORD: [id number] : 59 LOCATION:DCRISTIAN ADMISSION DATE: 05/18/19 Generatedon:05/18/201914:39 Patient name: CATHERINE BETTS Patient #: [id number] SSN: D OB: 1955 Date of study: 05/18/2019 Page: Of Hemodynamic Procedure Report Patient Data Patient Demographics Procedure consent was obtained First Name: CATHERINE Gender: Male Last Name: ALPESH : 1955 [facility] Initial: DIGNA Age: 63 year(s) Patient #: [id number] Race: Unknown Additional ID: [id number] Contact details Address: [address] [place] [address] State: [place] City: [place] Zip code: [address] Past Medical History Allergies Allergen Reaction Date Comments Reported Morphine 05/18/2019 Admission Admission Data Admission Date: 05/18/2019 Admission Time: 10:53 Weight (lbs.): 160.94 Weight (kg.): 73 Lab Results Lab Result Date: 05/18/2019 Lab Result Time: 0:00 Biochemistry Name Units Result Min Max BUN mg/dl 10 --(-*--)-- 7 18 Creatinine mg/dl 0.9 --(-*--)-- 0.6 1.3 eGFR ml/min 90 --(*---)-- 90 120 NONAFRICAN CBC Name Units Result Min Max Hematocrit % 38.7 *-(----)-- 42 54 Hemoglobin g/dl 13.3 -*(----)-- 13.5 17.5 Procedure Procedure Types Cath Procedure Diagnostic Procedure C [facility] w/Coronaries Sedation Charges Moderate Sedation up to 15 minutes Procedure Description Procedure Date Procedure Date: 05/18/2019 Procedure Start Time: 14:16 Procedure End Time: 14:38 Procedure Staff Name Function Hector Peña MD Performing Physician Randall Wiley RT Monitor Nehal Anthony RT Scrub Buffie Rizo RN Nurse Procedure Data Cath Procedure Fluoroscopy Diagnostic fluoroscopy Total fluoroscopy Time: 1.7 time: 1.7 min min Diagnostic fluoroscopy Total fluoroscopy dose: dose: 611.46 mGy 611.46 mGy Contrast Material Contrast Material Type Amount (ml) Isovue 300 67 Entry Location Entry Primary Successful Side Size Upsize Upsize Entry Closure Succes sful Closure Location (Fr) 1 (Fr) 2 (Fr) Remarks Device Remarks Femoral Right 5 Fr Exoseal artery Estimated blood loss: 5 ml Diagnostic catheters Device Type Used For End Catheter Placement MULTIPACK 3DRC 5Fr Procedure catheter MULTIPACK JL 4.0 5Fr Procedure catheter MULTIPACK 3DRC 5Fr Procedure catheter MULTIPACK Pigtail 5 Fr Procedure catheter Procedure Complications No complications Procedure Medications Medication Administration Route Dosage Oxygen etCO2 Nasal cannula 2 l/min Lidocaine 2% added to field 20 Heparin Flush Bag added to field 2 bags (1000units/500ml NS) 0.9% NaCl I.V. 100 ml/hr Versed I.V. 2 mg Fentanyl I.V. 100 mcg Versed I.V. 2 mg Fentanyl I.V. 100 mcg Versed I.V. 2 mg Fentanyl I.V. 100 mcg Hemodynamics Rest HGB: 13.3 (g/dl) Heart Rate: 70 (bpm) Pressure Samples Time Site Value (mmHg) Purpose Heart Use Rate(bpm) 14:28 LV 165/12,15 Snapshot 85 Gradients Valve Time Site Site Mean SEP/DFP Peak To Heart Use 1 2 (mmHg) (sec/min) Peak Rate (mmHg) (bpm) Aortic 14:29 LV AO 92 Snapshots Pre Cath Intra NCS Post Cath Vital Signs Time Heart Resp SPO2 etCO2 NIBP (mmHg) Rhythm Pain Sedation Rate (ipm) (%) (mmHg) Status Level (bpm) 14:14:52 70 12 98 33.8 179/92(0) NSR 0 (11) 10(A) , No pain 14:19:13 87 15 99 39.9 182/88(164) NSR 0 (11) 10(A) , No pain 14:23:33 92 19 98 38.4 149/97(129) NSR 0 (11) 10(A) , No pain 14:27:49 102 12 98 47.4 161/108(134) NSR 0 (11) 10(A) , No pain 14:31:53 99 18 99 41.4 149/101(141) NSR 0 (11) 10(A) , No pain 14:36:03 98 19 39.9 134/97(106) NSR 0 (11) 10(A) , No pain Medications Time Medication Route Dose Verified Delivered Reason Notes Eff ectiveness by by 14:11:12 Oxygen etCO2 2 Hector Deon used for Nasal l/min St Digna Rizo area forester cannula 14:11:19 Lidocaine 2% added 20ml Hector Hector for local to vial [facility] anesthetic field MD CAVAZOS 14:11:29 Heparin Flush added 2 Hector Hector used for Bag to bags [facility] procedure (1000units/500ml field MD CAVAZOS NS) 14:11:38 0.9% NaCl I.V. 100 Hector Howardie Per ml/hr St Digna Rizo RN physician 14:15:02 Versed I.V. 2 mg Hector Howardie for CaseyDigna Rizo RN sedation 14:15:08 Fentanyl I.V. [address] for mcg [address] Digna Rizo RN sedation 14:20:11 Versed I.V. 2 mg Hector Buffie for Casey Rizo RN sedation 14:20:15 Fentanyl I.V. 100 Hector Buffie for mcg Casey Rizo RN sedation 14:24:18 Versed I.V. 2 mg [facility] 14:24:22 Fentanyl I.V. 100 Hector Buffie for [facility] Casey Rizo RN sedation Procedure Log Time Note 13:47:15 Signed procedure consent form obtained from patient. 13:47:18 Procedure Status Elective Heart Cath (OP). 13:47:19 Time tracking: Regular hours (M-F 7:00 - 5:00) 13:47:29 Plan of Care:Hemodynamics will remain stable., Cardiac rhythm will remain stable., Comfort level will be maintained., Respiratory function will remain adequate., Patient/ family verbilizes understanding of procedure., Procedure tolerated without complication., Recovers from procedure without complications.. 13:47:33 Deon Rizo RN sent for patient. Start room use. 13:57:42 Patient Weight : 160.94 lbs 13:57:49 Patient allergic to Morphine 13:58:29 Lab Result : Creatinine 0.9 mg/dl 13:58:29 Lab Result : BUN 10 mg/dl 13:58:29 Lab Result : eGFR NONAFRICAN 90 ml/min 13:58:29 Lab Result : Hematocrit 38.7 % 13:58:29 Lab Result : Hemoglobin 13.3 g/dl 14:00:25 Patient received from Pre/Post Procedure Room to CCL 2 Alert and oriented. Tansferred to table in Supine position. 14:00:26 Warm blankets applied, and millie hugger turned on for patient comfort. 14:00:27 Correct patient and procedure confirmed by team. 14:00:27 ECG and BP/O2 sat monitors applied to patient. 14:09:40 Baseline sample Acquired. 14:09:40 Vital chart was started 14:09:43 Rhythm: sinus rhythm 14:09:44 Full Disclosure recording started 14:10:02 H&P Date Dictated: 05/10/2019 Within 30 days and on chart., H&P Addendum completed by physician on day of procedure. (MUST COMPLETE FOR ALL OUTPATIENTS). 14:10:03 Pre-procedure instructions explained to patient. 14:10:03 Pre-op teaching completed and patient verbalized understanding. 14:10:07 Family in waiting room. 14:10:09 Patient NPO since Midnight. 14:10:10 Is the patient allergic to Iodine/contrast media? No. 14:10:11 Is patient on blood thinner?No 14:10:12 Patient diabetic? No. 14:10:14 Previous problem with sedation/anesthesia? No ? 14:10:15 Snore? Yes 14:10:16 Sleep apnea? No 14:10:17 Deviated septum? No 14:10:17 Opens mouth fully? Yes 14:10:18 Sticks out tongue? Yes 14:10:20 Airway obstruction? No ? 14:10:23 Dentures? Yes in tight 14:10:27 Pre procedure: right posterior tibial pulse 1+ Palpable, but thready & weak; easily obliterated 14:10:30 Patient pain scale 0/10 ?. 14:10:34 IV patent on arrival in left antecubital with 0.9% NaCl at [facility]. 14:10:36 Lab results completed and on chart. 14:10:40 Right groin area was prepped with chlora-prep and draped in sterile fashion 14:10:41 Alarms reviewed by R. N. 14:10:41 Sharps counted by scrub and verified by R.N. 14:11:09 Use device set Femoral Dx 14:11:10 ACIST Syringe (32482) opened to sterile field. 14:11:10 Bag Decanter (2002S) opened to sterile field. 14:11:11 Medline Cath Pack ([id number]) opened to sterile field. 14:11:12 Oxygen 2 l/min etCO2 Nasal cannula was administered by Deon iRzo RN; used for procedure; 14:11:12 ACIST Hand Control (37381) opened to sterile field. 14:11:12 ACIST Manifold (35179) opened to sterile field. 14:11:13 Tegaderm 4 x 4 (1626W) opened to sterile field. 14:11:19 Lidocaine 2% 20ml vial added to field was administered by Hector Peña MD; for local anesthetic; 14:11:29 Heparin Flush Bag (1000units/500ml NS) 2 bags added to field was administered by Hector Peña MD; used for procedure; 14:11:38 0.9% NaCl 100 ml/hr I.V. was administered by Deon Rizo RN; Per physician; 14:12:01 SHEATH 5FR [place] ([id number]) opened to sterile field. 14:12:07 EMERALD Guide Wire (754-260) opened to sterile field. 14:12:08 DIAGNOSTIC Multipack 5Fr catheter set (UV1127) opened to sterile field. 14:14:08 Physician arrived 14:14: --------ALL STOP TIME OUT------ 14:14: Final Timeout: patient, procedure, and site verified with staff and physician. All members of the team are in agreement. 14:14:12 Right groin site verified by team. 14:14:15 Fire Safety Assessment: A--An alcohol-based skin anteseptic being used preoperatively., C--Open oxygen or nitrous oxide is being used., D--An ESU, laser, or fiber-optic light is being used. 14:14:18 Physical assessment completed. ASA score P 2 - A patient with mild systemic disease as per Hector Peña MD. 14:14:20 1) 90+ Normal kidney functon but urine findings or structural abnormalities or genetic trait point to kidney disease. 14:14:23 Maximum allowable contrast dose (3.7 X eGFR X 0.75)250 ml. 14:14:25 Sedation plan: IV Moderate Sedation Medication:Versed, Fentanyl 14:15:02 Versed 2 mg I.V. was administered by Deon Rizo RN; for sedation; 14:15:08 Fentanyl 100 mcg I.V. was administered by Deon Rizo RN; for sedation; 14:16:01 Procedure started. 14:16:05 Local anesthetic to right femoral artery with Lidocaine 2% by Hector Peña MD.INITIAL ACCESS ONLY 14:16:31 Zero performed for pressure channel P1 14:16:33 Zero performed for pressure channel P1 14:19:32 A 5 Fr sheath was inserted into the Right Femoral artery 14:19:45 A MULTIPACK 3DRC 5Fr catheter was advanced over the wire and used for Procedure. 14:19:48 RCA angiography performed. 14:19:52 Catheter removed. 14:20:11 Versed 2 mg I.V. was administered by Deon Rizo RN; for sedation; 14:20:15 Fentanyl 100 mcg I.V. was administered by Deon Rizo RN; for sedation; 14:21:21 A MULTIPACK JL 4.0 5Fr catheter was advanced over the wire and used for Procedure. 14:21:44 LCA angiography performed. 14:24:18 Versed 2 mg I.V. was administered by Deon Rizo RN; for sedation; 14:24:22 Fentanyl 100 mcg I.V. was administered by Deon Rizo RN; for sedation; 14:25:07 Catheter exchanged over wire. 14:26:01 ACCDominant side:Right 14:26:29 A MULTIPACK 3DRC 5Fr catheter was advanced over the wire and used for Procedure. 14:26:31 RCA angiography performed. 14:27:22 Catheter exchanged over wire. 14:27:27 A MULTIPACK Pigtail 5 Fr catheter was advanced over the wire and used for Procedure. 14:28:37 LV gram done using RAY 14::39 Injector settings: Ml/sec: 10, Volume: 20, 14:28:42 LV hemodynamics recorded. 14:28:48 EF : 60 % 14:29:49 Catheter removed. 14:29:51 EXOSEAL 5Fr (EX500) opened to sterile field. 14:30:00 Sheath removed intact; hemostasis achieved with Exoseal to the Right Femoral artery. 14:31:22 Procedure ended.(Physican Out) 14:31:43 Fluoroscopy time 01.70 minutes. 14:31:55 Flurop Dose total: 611.46 14:31:55 Fluoroscopy dose: 611.46 mGy 14:32:33 Cumulative DAP 10354 mGycm2 14:32:44 Contrast amount:Isovue 300 67ml. 14:32:47 Maximum allowable dose exceeded? No. 14:32:49 Sharps counted by scrub and verified by R.N. 14:32:50 Insertion/operative site no bleeding no hematoma. 14:32:53 Post-op/insertion site Right Femoral artery dressed using a 4 x 4 and Tegaderm. 14:32:56 Post right femoral artery:stable, soft, clean and dry 14:36:55 Post Procedure Pulses reassessed and unchanged 14:36:57 Post-procedure physical assessment completed. ASA score P 2 - A patient with mild systemic disease as per Hector Peña MD. 14:36:59 Post procedure rhythm: unchanged. 14:37:02 Estimated blood loss: 5 ml 14:37:03 Post procedure instruction explained to patient.Patient verbalizes understanding. 14:37:04 Patient needs reinforcement of post procedure teaching. 14:37:14 Procedure type changed to Cath procedure, Diagnostic procedure, LHC, LHC w/Coronaries, Sedation Charges, Moderate Sedation up to 15 minutes 14:37:49 Procedure and supply charges have been captured, reviewed, submitted and are correct. 14:37:51 Procedure Complication : No complications 14:37:53 Vital chart was stopped 14:38:07 See physician's report for complete and final results. 14:38:09 Report given to Pre/Post Procedure Room. 14:38:11 Patient transfered to Pre/Post Procedure Room with Stretcher. 14:38:13 Procedure ended. 14:38:13 Full Disclosure recording stopped 14:38:20 End room use (Document Last) Device Usage Item Name Manufacture Quantity Catalog Hospital Part Current Minimal L ot# / Number Charge Number Stock Stock Serial# Code ACIST Acist 1 29453 660406 539580 950273 20 Syringe [employer]Summits (62010) Systems Inc Bag Microtek 1 893289 12973 778988 5 Decanter [employer] Inc. (2002S) Medline Medline 1 [id number] 612060 69035 850647 5 Cath Pack ([id number]) ACIST Hand Acist 1 62220 702208 352592 383607 5 Control Medical (61786) Systems Inc ACIST Acist 1 00885 664541 725173 346395 5 Manifold Medical (20760) Systems Inc Tegaderm 4 3M 1 1626W 868130 174371 015143 5 x 4 (1626W) SHEATH 5FR Terumo 1 [id number] 981384 566820 892443 5 [place] (OJV878) EMERALD Cardinal 1 582-085 150745 905153 753886 5 Guide Wire Health (145-210) DIAGNOSTIC Cardinal 1 [id number] 503609 48588 098763 30 Multipack Health 5Fr catheter set (AU5469) MULTIPACK Cardinal 1 449721 5 3DRC 5Fr Health catheter MULTIPACK Cardinal 1 050510 5 JL 4.0 5Fr Health catheter MULTIPACK Cardinal 1 971967 5 Pigtail 5 Health Fr catheter EXOSEAL 5Fr Cardinal 1 EX500 644100 400616 459030 10 (EX500) Health Signature Audit [place] Stage Time Signature Unsigned Intra-Procedure 05/18/2019 Randall Wiley 2:39:28 PM RT(R) Signatures Performing Physician : Signature : Hector Peña MD Date : Time : Monitor : Randall Wiley RT Signature : Date : Time : Nurse : Deon Rizo RN Signature : Date : Time : [facility] [address] [place] [address]
[~2019-05-18 10:53] MED LIST changes: +HYDROCHLOROTHIA25 MG PO
[2019-05-18] MEDS ORDERED: HYDROCODON-ACE1 EA10 PO (12:08)
[2019-05-18] MEDS ORDERED: LISINOPRIL-HCT1 EAC8 PO (12:09)
[2019-05-18] MEDS ORDERED: ZOLOFT50 MG PO (12:09)
[2019-05-18] MEDS ORDERED: LIPITOR20 MG PO (12:10)
[2019-05-18 12:14] VITALS: BP 161/91; Ht 172.7 cm; Wt 72.7 kg
[2019-05-18 12:40] LABS: HEMATOCRIT 38.7 % (42.0-54.0); HEMOGLOBIN 13.3 g/dL (13.5-17.5); LYMPHOCYTES 23.5 % (15-50); MCH 31.1 pg (26.0-34.0); MCHC 34.4 g/dL (31.0-37.0); MCV 90.4 fL (80.0-100.0); MEAN PLATELET VOLUME 9.2 fL (7.4-10.4); NEUTROPHILS 67.9 % (40-80); RBC 4.28 10x6/uL (4.20-6.10); RDW 12.6 % (11.5-14.5); WBC 11.1 10x3/uL (4.8-10.8)
[2019-05-18 12:49] LABS: CALC OSMOLALITY 276 mosm/kg (275-300); CARBON DIOXIDE 28.1 mmol/L (21.0-32.0); CHLORIDE - SERUM 102 mmol/L (98-107); CREATININE - SERUM 0.9 mg/dL (0.6-1.3); GLUCOSE 98 mg/dL (74-106); POTASSIUM - SERUM 4.1 mmol/L (3.5-5.1); SODIUM 139 mmol/L (136-145); UREA NITROGEN 10 mg/dL (7-18); eGFR NON AFRICAN AMERICAN > 90 mL/min (90-120)
[2019-05-18 13:01] LABS: PLATELET COUNT 448 10x3/uL (130-400)
--- NOTE | 2019-05-18 14:46 | NUR ---
PT ARRIVED BY STRETCHER. PLACED ON MONITORS. ASSESSMENT COMPLETED. CALL LIGHT WITHIN REACH.
--- NOTE | 2019-05-18 15:00 | NUR ---
RIGHT GROIN DRESSING C/D/I. NO S/S OF HEMATOMA NOTED. PT SUPINE. RIGHT PEDAL PULSE PALPABLE. VSS. CALL LIGHT WITHIN REACH. DENIES NAUSEA. TOLERATING SIPS OF DRINK.
--- NOTE | 2019-05-18 15:30 | NUR ---
RIGHT GROIN DRESSING C/D/I. NO S/S OF HEMATOMA NOTED. VSS.
--- NOTE | 2019-05-18 16:00 | NUR ---
HEAD OF BED INC TO 30 DEGREES. TOLERATED WELL. VSS. RIGHT GROIN DRESSING C/D/I. RIGHT PEDAL PULSE PALPABLE. SET UP WITH SANDWICH TRAY.
--- NOTE | 2019-05-18 16:40 | NUR ---
RIGHT GROIN DRESSING C/D/I. NO S/S OF HEMATOMA NOTED. LEFT ARM PIV D/C'D WITH CATH TIP INTACT. PT TOLERATED WELL. PT INSTRUCTED TO GET UP AND DRESSED. FAMILY AT BEDSIDE TO ASSIST. CALL LIGHT WITHIN REACH. PT INSTRUCTED TO CALL FOR ASSISTANCE IF NEEDED.
--- NOTE | 2019-05-18 16:55 | NUR ---
PT AMBULATED TO RESTROOM. VOIDED WITHOUT DIFFICULTY. STEADY GAIT NOTED.
--- NOTE | 2019-05-18 17:00 | NUR ---
DISCUSSED DISCHARGE INSTRUCTIONS WITH PT AND PT'S FAMILY. THEY VOICED UNDERSTANDING. PT REFUSED WHEELCHAIR. NO S/S OF DISTRESS NOTED. RIGHT GROIN DRESSING C/D/I. NO S/S OF HEMATOMA NOTED. PT AMBULATED TO VEHICLE. ALL BELONGINGS AND PAPERWORK IN HAND.
--- NOTE | 2019-05-19 13:03 | OP ---
PATIENT NAME: CATHERINE BETTS MEDICAL RECORD: [id number] :59 LOCATION:D.CAT ADMISSION DATE: SURGEON: GUMARO DC MD DATE OF OPERATION: 05/18/2019 PROCEDURE: Left heart catheterization, selective coronary angiography, right femoral artery approach. CATHETERS: A 5-Sami sheath, 5/4 left and right William, 5/4 pig. The procedure was well tolerated. The patient returned to yap, sheath removed. ExoSeal device placed. FINDINGS: Left ventriculography in 30-degree RAY view: Normal wall motion and normal systolic function. CORONARY ANATOMY: LEFT MAIN: Left main is free of disease. LAD: Has 2 sequential stenosis, 1 proximal, 1 mid vessel about 80%. CIRCUMFLEX: Circumflex at the takeoff of the OM is a smallish vessel with about 90% stenosis. RIGHT CORONARY ARTERY: Has 2 sequential stenoses, biggest arteries of about 80%. IMPRESSION: Normal LV systolic function, multivessel coronary artery disease. We will consult cardiovascular surgery for possible coronary artery bypass grafting. TRANSINT:[id number] Voice Confirmation ID: [id number] DOCUMENT ID: [id number] GUMARO DC MD at 1303 CC: [id number] DICTATION DATE: 05/18/19 1446 DOUPER: 05/18/19 1540 DEP CLI 05/18/19 [facility] [address] [place] [address]
== END 2019-05-18 17:00 | disposition home or self-care (01) ==
LOC: D.CATH 10:53
PROVIDERS: ATTEND Internal Medicine Interventional Cardiology
DX: I25.110 Atherosclerotic heart disease of native coronary artery with unstable angina pectoris (principal); Z01.812 Encounter for preprocedural laboratory examination

== ENCOUNTER 2019-06-09 06:10 | Inpatient (IN) | payer MEDICARE ==
[~2019-06-09] VITALS: Ht 172.7 cm; Wt 73.2 kg
[~2019-06-09 06:10] MED LIST changes: +HYDROCODON-ACE1 EA10 PO; +LIPITOR20 MG PO; +LISINOPRIL-HCT1 EAC8 PO
[2019-06-09] MEDS ORDERED: NEURONTIN 300300 MG PO (08:46)
[2019-06-09] MEDS ORDERED: RESTORIL15 MG PO (08:48)
[2019-06-09] MEDS ORDERED: CELEXA20 MG PO (08:48)
[2019-06-09] MEDS ORDERED: VALIUM10 MG PO (08:49)
[2019-06-09] MEDS ORDERED: CYCLOBENZAPRINE PO (08:50)
[2019-06-09 10:19] LABS: BASOPHILS 0.5 % (0-2); HEMATOCRIT 35.7 % (42.0-54.0); IMMATURE GRANULOCYTES 0.2 % (0-5); MCH 30.4 pg (26.0-34.0); MCHC 33.6 g/dL (31.0-37.0); MCV 90.4 fL (80.0-100.0); MEAN PLATELET VOLUME 9.8 fL (7.4-10.4); MONOCYTES 7.4 % (2-11); NEUTROPHILS 61.9 % (40-80); PLATELET COUNT 381 10x3/uL (130-400); RBC 3.95 10x6/uL (4.20-6.10); RDW 12.9 % (11.5-14.5); WBC 10.3 10x3/uL (4.8-10.8)
[2019-06-09 10:31] LABS: INR 1.08 (0.85-1.17); PROTIME 13.5 SECONDS (11.6-15.0)
[2019-06-09 10:45] LABS: ALBUMIN 3.2 g/dL (3.4-5.0); ALKALINE PHOSPHATASE 108 U/L (46-116); ALT (SGPT) 19 U/L (10-68); BILIRUBIN - TOTAL 0.26 mg/dL (0.2-1.3); CALC OSMOLALITY 277 mosm/kg (275-300); CARBON DIOXIDE 28.6 mmol/L (21.0-32.0); CHLORIDE - SERUM 105 mmol/L (98-107); CHOLESTEROL, TOTAL 151 mg/dL (0-200); CREATININE - SERUM 0.9 mg/dL (0.6-1.3); GLUCOSE 77 mg/dL (74-106); PHOSPHOROUS 3.4 mg/dL (2.5-4.9); POTASSIUM - SERUM 3.5 mmol/L (3.5-5.1); PROTEIN - SERUM 7.2 g/dL (6.4-8.2); SODIUM 141 mmol/L (136-145); T4 THYROXIN - FREE 0.73 ng/dL (0.76-1.46); UREA NITROGEN 8 mg/dL (7-18); URIC ACID 4.4 mg/dL (2.6-7.2); eGFR NON AFRICAN AMERICAN > 90 mL/min (90-120)
[2019-06-13] VITALS (16 sets, daily range): BP systolic 126–177; BP diastolic 78–91; BMI 24.3
--- NOTE | 2019-06-13 11:51 | NUR ---
PT ARRIVED TO ROOM, MONITORING EQUIMENT ON AND ATTACHED, PIV TO LWRIST X1 ATTEMPT 20G SL, URINAL PROVIDED, KIRAN AND ANTHONY MACIAS NURSES AWARE OF ARRIVAL, WRITTEN ORDERS ENTERED IN COMPUTER PT COMPLAINING OF CHEST PAIN, KIRAN RN NOTIFIED
[2019-06-13 12:20] LABS: ALBUMIN 3.1 g/dL (3.4-5.0); ALKALINE PHOSPHATASE 104 U/L (46-116); ALT (SGPT) 16 U/L (10-68); BILIRUBIN - TOTAL 0.31 mg/dL (0.2-1.3); CALC OSMOLALITY 274 mosm/kg (275-300); CARBON DIOXIDE 27.6 mmol/L (21.0-32.0); CHLORIDE - SERUM 103 mmol/L (98-107); CREATININE - SERUM 0.8 mg/dL (0.6-1.3); GLUCOSE 96 mg/dL (74-106); POTASSIUM - SERUM 3.8 mmol/L (3.5-5.1); PROTEIN - SERUM 7.1 g/dL (6.4-8.2); SODIUM 138 mmol/L (136-145); UREA NITROGEN 10 mg/dL (7-18); eGFR NON AFRICAN AMERICAN > 90 mL/min (90-120)
[2019-06-13 12:28] LABS: APTT 39.3 SECONDS (22.8-39.4); INR 1.09 (0.85-1.17); PROTIME 13.6 SECONDS (11.6-15.0)
[2019-06-13 12:31] LABS: BASOPHILS 0.2 % (0-2); EOSINOPHILS 1.1 % (0-7); HEMATOCRIT 35.1 % (42.0-54.0); HEMOGLOBIN 11.9 g/dL (13.5-17.5); IMMATURE GRANULOCYTES 0.2 % (0-5); LYMPHOCYTES 14.1 % (15-50); MCH 30.6 pg (26.0-34.0); MCHC 33.9 g/dL (31.0-37.0); MCV 90.2 fL (80.0-100.0); MEAN PLATELET VOLUME 10.1 fL (7.4-10.4); MONOCYTES 6.2 % (2-11); NEUTROPHILS 78.2 % (40-80); PLATELET COUNT 412 10x3/uL (130-400); RBC 3.89 10x6/uL (4.20-6.10); WBC 16.3 10x3/uL (4.8-10.8)
--- NOTE | 2019-06-13 13:07 | NUR ---
1220 NITRO FOR CHEST PAIN INITIATED 1255 UA SENT TO LAB
[2019-06-13 13:24] LABS: APPEARANCE CLEAR (CLEAR); BILIRUBIN NEGATIVE (NEGATIVE); COLOR YELLOW (YELLOW); GLUCOSE NEGATIVE (NEGATIVE); KETONE NEGATIVE (NEGATIVE); NITRITE NEGATIVE (NEGATIVE); PROTEIN NEGATIVE (NEGATIVE); SPECIFIC GRAVITY 1.005 (1.005-1.020); UROBILINOGEN NORMAL (NORMAL)
--- NOTE | 2019-06-13 15:00 | NUR ---
PT SPILLED URINAL, CLEAN LINENS PROVIDED
--- NOTE | 2019-06-13 16:23 | NUR ---
PT STATES HE TAKES TWO NORCO 10S AT HOME Q4 AND WOULD LIKE TO CONTINUE THAT, DR RABAGO NOTIFIED WITH NO NEW ORDERS, PT STATED "OKAY"
--- NOTE | 2019-06-13 18:02 | NUR ---
PT REFUSED DINENR TRAY, DENIES ALL NEEDS
--- NOTE | 2019-06-13 20:01 | NUR ---
PT RECEIVED WATCHING TV. COMPLAINS OF ANXIETY AND ASKS FOR PRN VALIUM, EXPLAINED THAT HE CAN ONLY HAVE ONE DAILY AND HE IS NPO AFTER MIDNIGHT, STATES UNDERSTANDING AND MEDICATION GIVEN. NO OTHER NEEDS MADE KNOWN. CALL LIGHT IN REACH. WILL CONTINUE TO OBSERVE.
--- NOTE | 2019-06-13 22:28 | NUR ---
PT WATCHING TV. NO S/S OF DISTRESS NOTED AT THIS TIME. CALL LIGHT IN REACH. WILL CONTINUE TO OBSERVE.
--- NOTE | 2019-06-13 23:20 | NUR ---
REASSESSMENT COMPLETED, SEE FLOW SHEET
[2019-06-14] VITALS (52 sets, daily range): BP systolic 105–150; BP diastolic 58–89; Ht 172.7 cm; Wt 73.2 kg
--- NOTE | 2019-06-14 02:00 | NUR ---
PT RESTING WITH EYES CLOSED AND CHEST RISING. NO S/S NOTED AT THIS TIME. CALL LIGHT IN REACH. WILL CONTINUE TO OBSERVE.
--- NOTE | 2019-06-14 04:19 | NUR ---
PT GIVES SELF CHG BATH AFTER EDUCATION AND STATES UNDERSTANDING. PT CLIPPED PRIOR TO BATH FROM CHIN TO FEET. LINENS CHANGED. PT HAD SPILT URINE IN BED, DID NOT REPORT AND NOTICE WHEN BEGINING TO CLIP. PT AMBULATED TO BATHROOM WITH STEADY GAIT. PEDAL AND TIBIAL PULSES MARKED TO BILATERAL LOWER EXTREMETIES. NO CONCERNS NOTED. BILATERAL B/P OBTAINED, FSBS CHECKED 110. REASSESSMENT COMPLETED, SEE FLOW SHEET. CALL LIGHT IN REACH. WILL CONTINUE TO OBSERVE.
--- NOTE | 2019-06-14 06:42 | NUR ---
PT LEAVING UNIT TO SURGERY VIA BED WITH OR STAFF.
--- NOTE | 2019-06-14 15:34 | NUR ---
1340 PT RECIEVED SEDATED FROM SURGERY ETT 8.5 PLACED ON VENT BY RT, R IJ CVL DRESSING CDI, SEE IV FLOWSHEET FOR GTTS, R RADIAL A LINE ZEROED, GOOD WAVEFORM, WRIST PROTECTOR IN PLACE, MIDSTERNAL AND SUBSTERNAL INCISIONS CDIWITH SUBSTERNAL CT 2 Y'D TOGETHER AND ONE SINGLE TUBE, BLOODY DRAINAGE, AIR LEAK PRESENT, REBEKAH DRAIN COMPRESSED WITH BLOODY DRAINAGE, TPM WIRE COILED, CRITICORE RACHEL DRAINING YELLOW URINE, RLE HARVEST SITES CDI WITH COBAN FROM GROIN TO ANKLE, PETERSON AND SCD ON LLE, ORDERS FOR LOPRESSOR IV PER EMAR NO FAMILY HERE AT THIS TIME PT CURRENTLY AWAKE AND FOLLOWING COMMANDS, ABLE TO MOVE ALL EXTREMETIES
--- NOTE | 2019-06-14 17:31 | NUR ---
ABGS NIF AND VITAL CALLED TO DR RICE, ORDERS TOEXTUBATE, EXTUBATED AND RESTRAINTS REMOVED 1724
--- NOTE | 2019-06-14 18:23 | NUR ---
PT TOLERATING ICE AND WATER WITHOUT PROBLEMS, 500 ON IS X10 WITH MUCH ENCOURAGEMENT
--- NOTE | 2019-06-14 19:00 | NUR ---
REPORT RECEIVED, SHIFT ASSESSMENT PER FLOW SHEET, PT AWAKE AND ALERT, FOLLOWS COMMANDS, RT IJ CVL INFUSING MEDS PER MAR/ORDERS, MIDSTERNAL DRSG C/D/I, SUBSTERNAL REBEKAH COMPRESSED, CTX3 BLOODY DRAINAGE, AIR LEAK NOTED, TPM WIRES COILED AND SECURED, CRITICORE RACHEL CATH, RLE HARVEST SITES WITH COBAN DRSG FROM GROIN TO ANKLE, RT RADIAL ART LINE INTACT WITH GOOD WAVEFORM NOTED ON CM, VSS, CUP ICE WATER GIVEN PER REQUEST, WILL CONTINUE TO MONITOR
--- NOTE | 2019-06-14 22:50 | NUR ---
DRINK H2O PER REQUEST FROM PT, PT BEGAN COUGHING AND PULLED OUT OF MOUTH 4X4 GAUZE, PT HAD REMOVED GAUZE FROM RT ARM AND PLACED IN MOUTH, INSPECTED ORAL CAVITY NO OTHER FOREIGN OBJECTS NOTED, DISCUSSED WITH PT NOT TO PLACE OBJECTS IN MOUTH THAT COULD CAUSE HARM, PT VERBALIZED UNDESTANDING, WILL CONTINUE TO MONITOR
[2019-06-15] VITALS (59 sets, daily range): BP systolic 95–138; BP diastolic 54–87
[2019-06-15 00:08] LABS: APPEARANCE CLEAR (CLEAR); BILIRUBIN NEGATIVE (NEGATIVE); COLOR YELLOW (YELLOW); GLUCOSE NEGATIVE (NEGATIVE); KETONE NEGATIVE (NEGATIVE); NITRITE NEGATIVE (NEGATIVE); PROTEIN NEGATIVE (NEGATIVE); UROBILINOGEN NORMAL (NORMAL)
[2019-06-15 00:09] LABS: EPITHELIAL CELLS 0-5 /hpf (0-5); RED CELLS - URINE NONE SEEN /hpf (0-5); WHITE CELLS - URINE 0-5 /hpf (0-5)
[2019-06-15 00:10] LABS: BACTERIA FEW /hpf (NONE SEEN)
--- NOTE | 2019-06-15 00:26 | NUR ---
SMALL CUP ICE WATEER PER REQUEST
--- NOTE | 2019-06-15 01:00 | NUR ---
RN X2 AT BEDSIDE, REPOSITIONED AND DANGLED PT AT BEDSIDEPER ORDERS, PT TOLLERATED MOVEMENT WELL, NO ACUTE S/S OF DISTRESS, MINIMAL CT OPUTPUT NOTED, REPOSITIONED PT/LINES/TUBES BACK IN BED, VSS, WILL CONTINUE TO MONITOR
--- NOTE | 2019-06-15 01:00 | NUR ---
PT REPOSITIONED AND DANGLED AT BEDSIDE
[2019-06-15 05:29] LABS: HEMATOCRIT 30.9 % (42.0-54.0); HEMOGLOBIN 10.4 g/dL (13.5-17.5); MCH 30.4 pg (26.0-34.0); MCHC 33.7 g/dL (31.0-37.0); MCV 90.4 fL (80.0-100.0); MEAN PLATELET VOLUME 9.9 fL (7.4-10.4); RBC 3.42 10x6/uL (4.20-6.10); RDW 13.3 % (11.5-14.5); WBC 23.2 10x3/uL (4.8-10.8)
[2019-06-15 05:41] LABS: ALBUMIN 2.5 g/dL (3.4-5.0); ALKALINE PHOSPHATASE 56 U/L (46-116); ALT (SGPT) 16 U/L (10-68); BILIRUBIN - TOTAL 0.21 mg/dL (0.2-1.3); CALCIUM 7.8 mg/dL (8.5-10.1); CARBON DIOXIDE 24.8 mmol/L (21.0-32.0); CHLORIDE - SERUM 108 mmol/L (98-107); CREATININE - SERUM 0.8 mg/dL (0.6-1.3); GLUCOSE 131 mg/dL (74-106); MAGNESIUM - SERUM 2.2 mg/dL (1.8-2.4); PHOSPHOROUS 2.7 mg/dL (2.5-4.9); POTASSIUM - SERUM 3.8 mmol/L (3.5-5.1); PROTEIN - SERUM 5.4 g/dL (6.4-8.2); SODIUM 141 mmol/L (136-145); eGFR NON AFRICAN AMERICAN > 90 mL/min (90-120)
[2019-06-15 05:42] LABS: CALC OSMOLALITY 280 mosm/kg (275-300); UREA NITROGEN 7 mg/dL (7-18)
--- NOTE | 2019-06-15 06:00 | NUR ---
CHG BATH COMPLETED, RACHEL CARE, RNx2 AT BEDSIDE ASSISTED PT TO BEDSIDE CHAIR, PT RELUCTANT TO AMBULATE TO CHAIR, REPOSITIONED LINES AND TUBES, RECLINED PT FOR COMFORT, ATTEMPTED AND ENCOURAGED I/S WITH PT MULTIPLE TIMES WITH POOR EFFORT FROM PT, SHARMILA DEVICE COMPLETED, PT C/O ACUTE SHARP BACK PAIN, MED GIVEN FOR PAIN SEE MAR, WATER GIVEN PER REQUEST, VSS WILL CONTINUE TO MONITOR
--- NOTE | 2019-06-15 08:50 | NUR ---
0700 PT RECIEVED UP IN CHAIR ALERT AN DORIENTED O2 3L NC DECREASED TO 2 L NC, R IJ CVL DRESSING CDI WITH PLASMALYTE 100ML/HR, AMIO 0.5MG/MIN, CLEVIPREX 4MG/MIN, NITRO 16.67MCG OR 5ML/HR, ZINACEF 11.4ML/HR, MIDSTERNAL AND SUBSTERNAL DRESSIGNS CDI WITH SUBSTERNAL TPM WIRES COILED, REBEKAH DRAIN COMPRESSED WITH BLOODY DRAINAGE, CT 2 Y'D TOGETHER AND 1 SINGLE TO 20CM SUCTION BLOODY DRAINAGE, AIR LEAK PRESENT, R RADIAL A LINE ZEROED, GOOD WAVEFORM, WRIST PROTECTOR IN PLACE, RLE HARVEST SITES WITH COBAN GROIN TO ANKLE, CRITICORE RACHEL DRAINING YELLOW URINE 0800 CLEAR LIQUIDS GIVEN FOR BREAKFAST 0845 AM MEDS GIVEN TOLERATED WELL
--- NOTE | 2019-06-15 11:23 | NUR ---
A LINE DCD PER PROTOCOL TIP INTACT
--- NOTE | 2019-06-15 11:51 | NUR ---
KENNEDY MATTSON FROM PHARMACY
--- NOTE | 2019-06-15 12:35 | OP ---
PATIENT NAME: CATHERINE BETTS MEDICAL RECORD: [id number] :59 LOCATION:[id number] ADMISSION DATE:06/13/19 SURGEON: FAHAD RICE MD DATE OF OPERATION: 06/14/2019 SURGEON: Fahad Rice MD JOY LOADING MACHINE OPERATOR: JULIO Villela MD and Kimo Jacob. OPERATION PERFORMED: 1. Coronary artery bypass graft times 4 (left internal mammary artery to LAD, reverse saphenous vein graft from aorta to obtuse marginal, from the side of that vein graft to the diagonal distally, and from the aorta to posterior descending artery). 2. Endoscopic saphenous vein harvest. PREOPERATIVE DIAGNOSIS: Coronary artery disease with unstable angina. POSTOPERATIVE DIAGNOSIS: Coronary artery disease with unstable angina. ANESTHESIA: General endotracheal anesthesia. ESTIMATED BLOOD LOSS: Total cardiopulmonary bypass with Cell Saver retransfusion. COMPLICATIONS: None. SPECIMENS: None. CONDITION: Stable. DISPOSITION: CV ICU. OPERATIVE FINDINGS: 1. Transesophageal echocardiography revealed trace mitral regurgitation. No change after separation from cardiopulmonary bypass. 2. Greater saphenous vein from the right thigh was only 3 mm in caliber, likely a dual system and small caliber portion was used for the graft to the PDA. An open harvest was performed for the right lower leg where the graft was 5-mm, good quality and this was used for the obtuse marginal graft as well as a small portion for the diagonal graft. 3. Good quality left internal mammary artery. 4. Normal appearing heart. 5. Severe bullous emphysema bilaterally with a medial 1 cm bulla arising from the lower lobe abutting the mediastinal pleura and multiple apical adhesions consistent with bullous disease. 6. LAD moderately diseased 2.0-mm vessel. 7. First diagonal severely diseased 1.5 mm vessel. The proximal end of the vein graft was anastomosed to the side of the obtuse marginal vein graft. 8. Obtuse marginal 2.0 mm, a better distal target than expected from the angiogram. 9. The posterior descending was completely calcified throughout with only a 2 mm soft spot just behind a large vein, which was the distal anastomotic site and otherwise completely calcified vessel. OPERATIVE REPORT [id number] CATHERINE BETTS OPERATIVE INDICATION: Coronary artery disease, symptomatic. OPERATIVE SUMMARY IN DETAIL: The patient was brought to the operating suite. General anesthesia was obtained. The patient was prepped and draped. Greater saphenous vein was harvested endoscopically from the right thigh. The vessel was ligated proximally and distally and removed. Small leakage sites were oversewn and side branches were tied in the lower leg and open harvest was performed. Side branches were clipped and after removal were tied. Later, the leg was closed in 2 layers [address] Villela was the sales assistant entertainment and media surgeon on this case, who harvested the vein, checked for leakage and the use of sales assistant entertainment and media surgeon saved approximately 1 hour of general anesthetic time on this case. Continuing medial sternotomy incision was made. Subcutaneous tissue was divided with electrocautery. Sternum was divided with a saw. Left hemisternum was elevated. Left pleural cavity was entered. Left internal mammary vein was taken as a pedicle graft. Sternal retractor was placed. Pericardium was opened. Heparin was given. The area was cannulated. Dual stage venous cannula was inserted. The internal mammary was clipped distally and made ready for anastomosis. Activated clotting time was appropriately elevated. The patient was placed on cardiopulmonary bypass. Sites for distal anastomoses were selected. The patient's temperature was allowed to drift downward. Antegrade cardioplegia cannula was inserted. Crossclamp was placed. Cardioplegia was given antegrade and this repeated at 15 to 20 minutes intervals including down the completed vein grafts. Distal anastomoses were performed in standard technique. Proximal anastomosis with single cross-clamp technique with 2 proximal anastomoses, 3.5 mm punch to the small caliber vein graft, 4.0 for the obtuse marginal graft. Cross clamp removed. Aortic root was deaired. Proximal anastomoses were tied down. Flow was restored. Proximal and distal anastomotic site was inspected for bleeding. A single [id number] anastomosis performed to the diagonal graft. Hemostasis again ensured. The patient was fully rewarmed, weaned from cardiopulmonary bypass and was stable. The patient was decannulated. The cannula sites were oversewn. Protamine was given. Thorough irrigation was undertaken. The graft lay appropriately. Hemostasis was ensured. Drains were placed in the mediastinum and both pleural cavities. Pericardial fat was loosely reapproximated in the midline after placing ventricular pacing wires. The internal mammary harvest site was inspected for bleeding. Sternum was closed with wires. Fascia was closed. Subcutaneous tissue was closed. Skin was closed. Dermabond was placed. The needle and sponge counts reported as correct. The patient was taken to ICU in stable condition. TRANSINT:[id number] Voice Confirmation ID: [id number] DOCUMENT ID: [id number] FAHAD RICE MD at 1235 CC: GUMARO DC MD [id number] DICTATION DATE: 06/14/19 1530 HEATING UNIT INSTALLER: 06/14/19 1610 ADM IN [place] [id number] [place] [address]
--- NOTE | 2019-06-15 15:59 | NUR ---
1200 ATE 25% LUNCH, STEPSON HERE FOR VISITATION 1300 SEEN BY PT 1500 REPOSITIONED IN CHAIR
--- NOTE | 2019-06-15 18:09 | NUR ---
PT REFUSED DINNER TRAY PT HR NOTED TO BE IRREGULAR WITH PACS, PVS AND PAUSES, EGK DONE AND DR RICENOTIFIED WITH ORDERS FOR STAT KCL AND MAG, DRAWN AND TUBED TO LAB, CONFIRMED WITH LAB
[2019-06-15 18:31] LABS: POTASSIUM - SERUM 3.8 mmol/L (3.5-5.1)
--- NOTE | 2019-06-15 18:41 | NUR ---
AND Mary CALLED TO DR RICE WITH ORDERS FOR MAG AND KCL INFUSIONS
--- NOTE | 2019-06-15 19:54 | NUR ---
PT RECEIVED IN BEDSIDE CHAIR. CHEST TUBES TO SUCTION WITH DRAINAGE. RACHEL PATENT. MIDSTERNA AND SUBSTERNAL DRESSING C/D/I. HR TACHYCARDIC. B/P WITHIN NORMAL LIMITS. CONTINUES MAG AND POTASSIUM IV. REQUESTING PAIN MEDICATION WITH NEXT ONE DUE AT 2001. CALL LIGHT IN REACH. WILL CONTINUE TO OBSERVE.
--- NOTE | 2019-06-15 21:47 | NUR ---
PT CONTINUES SITTING IN CHAIR AT BEDSIDE. COMPLAINS OF INCISIONAL PAIN WITH PRN PAIN MEDICATIONS GIVEN PER MAR. EVENING MEDICATIONS GIVEN, TOLERATED WELL. MAG AND POTASSIUM COMPLETED WITH IV LINES REMOVE AND CVL FLUSHED. VSS. WILL CONTINUE TO OBSERVE. WILL CONTINUE TO OBSERVE.
--- NOTE | 2019-06-15 23:36 | NUR ---
REASSESSMENT COMPLETED, SEE FLOW SHEET.
[2019-06-16] VITALS (24 sets, daily range): BP systolic 97–120; BP diastolic 49–74
--- NOTE | 2019-06-16 02:12 | NUR ---
PT IN CHAIR DOES NOT WANT TO BED WHEN ASKED. SLEEPING AT THIS TIME WITH CHEST RISING. VSS. WILL CONTINUE TO OBSERVE.
--- NOTE | 2019-06-16 03:24 | NUR ---
REASSESSMENT COMPLETED, SEE FLOW SHEET.
[2019-06-16 05:47] LABS: HEMATOCRIT 29.2 % (42.0-54.0); HEMOGLOBIN 9.7 g/dL (13.5-17.5); MCH 30.5 pg (26.0-34.0); MCHC 33.2 g/dL (31.0-37.0); MCV 91.8 fL (80.0-100.0); RBC 3.18 10x6/uL (4.20-6.10); RDW 13.4 % (11.5-14.5); WBC 22.8 10x3/uL (4.8-10.8)
[2019-06-16 05:54] LABS: ALBUMIN 2.5 g/dL (3.4-5.0); ALKALINE PHOSPHATASE 59 U/L (46-116); ALT (SGPT) 17 U/L (10-68); BILIRUBIN - TOTAL 0.39 mg/dL (0.2-1.3); CALC OSMOLALITY 275 mosm/kg (275-300); CARBON DIOXIDE 24.3 mmol/L (21.0-32.0); CHLORIDE - SERUM 106 mmol/L (98-107); CREATININE - SERUM 0.8 mg/dL (0.6-1.3); GLUCOSE 107 mg/dL (74-106); MAGNESIUM - SERUM 2.5 mg/dL (1.8-2.4); PHOSPHOROUS 2.2 mg/dL (2.5-4.9); POTASSIUM - SERUM 4.2 mmol/L (3.5-5.1); SODIUM 138 mmol/L (136-145); UREA NITROGEN 12 mg/dL (7-18); eGFR NON AFRICAN AMERICAN > 90 mL/min (90-120)
--- NOTE | 2019-06-16 06:18 | NUR ---
CHG BATH GIVEN, TOLERATED WELL. PT WEAK WITH ASSIST GIVEN WITH STANDING WHILE CHANGING LINENS ON CHAIR. RACHEL CARE PROVIDED. DRESSING TO SUBSTERNAL AND RIGHT LOWER LEG HARVEST SITE CHANGED, SMALL DRAINAGE NOTED TO HARVEST SITE. WILL CONTINUE TO OBSERVE.
--- NOTE | 2019-06-16 07:05 | NUR ---
REPORTED ABNORMAL PHOSPHORUS AND MAG TO , NO ORDERS GIVEN.
--- NOTE | 2019-06-16 07:36 | NUR ---
UP IN CHAIR WATCHING TV AT THIS TIME. NO ACUTE DISTRESS NOTED. PT ABLE TO FOLLOW COMMANDS. CONFUSION NOTED. PT ABLE TO STATE NAME. WHEN ASKED IF HE KNEW WHERE HE WAS, HE STATED [facility], BUT WAS UNABLE TO STATE WHAT TOWN [place] IS IN. ASKED PT IF HE KNEW THE YEAR HE STATED, "T[age] THOUSAND TWO TWO TWO." WHEN ASKED PT IF HE KNEW WHY HE WAS IN THE HOSPITAL, HE STATED, "I DON'T KNOW." PT REORIENTED, AND WAS ABLE TO RECALL THE YEAR BUT STILL WAS UNABLE TO ANSWER OTHER QUESTIONS CORRECTLY. REORIENTATION PROVIDED AGAIN. VSS. WILL CONTINUE TO OBSERVE.
--- NOTE | 2019-06-16 08:31 | NUR ---
CONFUSION NOTED; PT CONSISTENTLY ASKING "CAN I GO WALK?" REORIENTATION PROVIDED THAT HE CANNOT WALK BECAUSE HE HAS MULTIPLE TUBES (3 CHEST TUBES). PT STATED "OKAY." A FEW MIN LATER PT ASKED SAME QUESTION AGAIN, REORIENTATION PRVIDED AGAIN. WILL CONTINUE TO PROVIDE ORIENTATION.
--- NOTE | 2019-06-16 08:52 | TEE ---
PATIENT:CATHERINE BETTS MEDICAL RECORD: [id number] LOCATION:[place] [address] AGE OF PATIENT: 64 ADMISSION DATE: 06/13/19 SEX: M REFERRING PHYSICIAN: INTERPRETING PHYSICIAN: ALEKS MORRELL MD TRANSESOPHAGEAL ECHOCARDIOGRAM Date: 06/14/19 GIFTY CHARGE Y INDICATIONS: CABG PREMEDICATIONS: PATIENT'S RESPONSE PROCEDURE DOPPLER MEASUREMENTS: LVIT LA 3.0 PA RA LVOT RVOT Asc. Ao AV Gradient Peak AV Mean AV Area MV Gradient Peak MV Mean MV Area INTERPRETATION: Doppler: 2-D: COLOR FLOW DOPPLER NORMAL SALINE STUDY: MISCELLANOUS: DIAGNOSIS: PLAN: Fourchette Sewer:3 Dr. Oliveros Client Relationship Consultant: Jace LEIGH COMMENTS: DWAYNE PATIENT DATE OF SERVICE: 06/14/2019 PROCEDURE: Transesophageal echo evaluation of valvular structures during bypass surgery. FINDINGS 1. Left ventricular chamber size is within normal limits. Left ventricular systolic function is normal. Overall ejection fraction estimated at 55%. 2. Left atrium, right atrium, and right ventricular chamber sizes are within TRANSESOPHAGEAL ECHOCARDIOGRAM REPORT [id number] SAMAN BETTS normal limits. 3. Valvular structures have normal structure and motion. 4. Doppler interrogation reveals trace mitral regurgitation, no other valvular insufficiency or stenosis. 5. No evidence of pericardial effusion or left ventricular thrombus. TRANSINT:[id number] Voice Confirmation ID: [id number] DOCUMENT ID: [id number] at 0852 CC: [id number] DICTATION DATE: 06/14/19 1555 SOLE INKER: 06/15/19 0909 ADM IN [place] [address] [place] [address]
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
--- NOTE | 2019-06-16 11:04 | NUR ---
NO ACUTE DISTRESS NOTED. UP IN CHAIR WATCHING TV. VSS. WILL CONTINUE PLAN OF CARE.
--- NOTE | 2019-06-16 11:31 | NUR ---
PT ASSISTED TO BEDSIDE TOILET VIA 2 PERSON TRANSFER ASSIST, PT STATED HE FELT LIKE HE NEEDED TO HAVE A BOWEL MOVEMENT. AFTER A FEW MIN PT STATES HE IS DONE, PT ASSISTED OFF BEDSIDE TOILET, JOSE CARE PROVIDED. PT THEN ASSISTED TO BED. LYING IN BED AT THIS TIME WATCHING TV. NO ACUTE DISTRESS NOTED. VSS. WILL CONTINUE PLAN OF CARE.
--- NOTE | 2019-06-16 11:47 | NUR ---
IS ATTEMPT NOTED AT 500.
--- NOTE | 2019-06-16 13:10 | NUR ---
UP IN BED AWAKE AT THIS TIME. NO ACUTE DISTRESS NOTED. VSS. CALL LIGHT IN REACH. WILL CONTINUE PLAN OF CARE.
--- NOTE | 2019-06-16 14:46 | MORECARE ---
CASE MANAGEMENT DISCHARGE SUMMARY PATIENT: CATHERINE BETTS UNIT: [id number] ADM DATE: 06/13/19 AGE: 64 : 59 SEX: M ROOM/BED: [facility] AUTHOR: DAMARIS JOHNSON PHYSICIAN: REFERRING PHYSICIAN: JANNA RICE MD DATE OF SERVICE: 06/16/19 Discharge Plan Patient Name: CATHERINE BETTS Facility: [facility]:[place] : 1955 Planned Disposition: Home Anticipated Discharge Date: Discharge Date: Expected LOS: Initial Reviewer: [email or web address] Initial Review Date: 06/15/2019 Generated: 06/16/19 3:46 pm DCP- Discharge Planning Updated by [email or web address]: Shalonda Austin on 06/14/19 5:[address] PATIENT RECENTLY EXTUBATED NO FAMILY AVAILABLE TO ANSWER D/C PLANNING QUESTIONS. CM WILL SEE PATIENT IN AM. Patient Name: CATHERINE BETTS Page [id number] at 1446 All edits/amendments must be made on the electronic document DICTATION DATE: 06/16/19 1446 TECHNICAL EDUCATION TEACHER: CANDIDA 06/16/19 1446 RPT#: [id number] DC DATE: STATUS: ADM IN [facility] [address] [place] [address] END OF REPORT
--- NOTE | 2019-06-16 14:51 | NUR ---
RACHEL DCD AT THIS TIME PER PHYSICIAN ORDERS. CATHETER TIP INTACT. JOSE CARE PROVIDED. NO ACUTE DISTRESS NOTED. WILL CONTINUE PLAN OF CARE.
--- NOTE | 2019-06-16 14:53 | MORECARE ---
CASE MANAGEMENT DISCHARGE SUMMARY PATIENT: CATHERINE BETTS UNIT: [id number] ADM DATE: 06/13/19 AGE: 64 : 59 SEX: M ROOM[facility]ED: [facility] AUTHOR: ELIZABETH,DOC PHYSICIAN: REFERRING PHYSICIAN: JANNA RICE MD DATE OF SERVICE: 06/16/19 Discharge Plan Patient Name: CATHERINE BETTS Facility: [facility]:[place] : 1955 Planned Disposition: Home Anticipated Discharge Date: Discharge Date: Expected LOS: Initial Reviewer: [email or web address] Initial Review Date: 06/15/2019 Generated: 06/16/19 3:52 pm Comments DCP- Discharge Planning Updated by [email or web address]: Shalonda Austin on 06/16/19 1:[address] Patient Name: CATHERINE BETTS Admission Status: Urgent Accout number: [id number] Admission Date: 06-13-2019 : 1955 Admission Diagnosis: Attending: JANNA RICE Current LOS: 3 Anticipated DC Date: Planned Disposition: Home Primary Insurance: MEDICARE A & B Discharge Planning Comments: CM called and spoke with patient's son Vlad since patient is confused at this time CM explained CM role and obtaining verbal consent. Patient lives at home with his son Vlad where he is independent with his care and plans to return there upon discharge. Patient feels this would be a safe discharge. CM discussed availability / needs of home health and medical equipment. Patient denies any discharge needs at this time. Patient states he will have his family drive him home upon discharge. CM will continue to follow and assist as needed with discharge planning / needs. Forestry Technician: Shalonda Austin DCP- Discharge Planning Updated by [email or web address]: Shalonda Austin on 06/14/19 5:[address] PATIENT RECENTLY EXTUBATED NO FAMILY AVAILABLE TO ANSWER D/C PLANNING QUESTIONS. CM WILL SEE PATIENT IN AM. DCPIA - Discharge Planning Initial Assessment Updated by [email or web address]: Shalonda Austin on 06/16/19 2:46 pm * Is the patient Alert and Oriented? Yes * How many steps to enter\exit or inside your home? RAMP * PCP ANAND * Pharmacy [facility] * Preadmission Environment Home with Family * ADLs Independent * Other Equipment WALKER, W/C * List name and contact numbers for known caregivers / representatives who currently or will assist patient after discharge: VLAD ACEVEDO- [phone] * Verbal permission to speak to the caregivers and representatives has been obtained from the patient. Yes * Community resources currently utilized None * Additional services required to return to the preadmission environment? No * Can the patient safely return to the preadmission environment? Yes * Has this patient been hospitalized within the prior 30 days at any hospital? No Last DP export: 06/16/19 1:46 p Patient Name: CATHERINE BETTS Page [id number] at 1453 All edits/amendments must be made on the electronic document DICTATION DATE: 06/16/191451 MUSIC ADAPTER: CANDIDA 06/16/191451 RPT#: [id number] DC DATE: STATUS: ADM IN [facility] [address] [place] [address] END OF REPORT
--- NOTE | 2019-06-16 16:11 | NUR ---
NO ACUTE DISTRESS NOTED. NO CHANGE. VSS. WILL CONTINUE PLAN OF CARE.
--- NOTE | 2019-06-16 18:15 | NUR ---
UP IN BED WATCHING TV AT THIS TIME. NO ACUTE DISTRESS NOTED. PT DENIES ANY NEEDS. WILL CONTINUE PLAN OF CARE.
--- NOTE | 2019-06-16 19:00 | NUR ---
REPORT RECIEVED. MIDSTERNAL DRESSING CDI, SUBSTERNAL DRESSING CDI, CTX1, AIR LEAK NOTED, DRAINING BLOODY FLUID. PT HAS THE URGE TO URINATE, BUT NONE IS PRODUCED AT THIS TIME. PT IS DISORIENTED TO TIME, PLACE, AND SITUATION, REORIENTED NEEDED. RIGHT IJ CVL, SEE IV FLOWSHEET. NO ACUTE DISTRESS NOTED, CALL LIGHT IN REACH, WILL CONTINUE TO MONITOR.
--- NOTE | 2019-06-16 21:00 | NUR ---
PT URINATED 240ML YELLOW URINE AFTER 3 ATTEMPTS, NO DIFFICULTY AND REPORTS FEELING "MUCH BETTER." PM MEDS TAKEN WITHOUT DIFFICULTY, WILL CONTINUE TO MONITOR.
--- NOTE | 2019-06-16 23:15 | NUR ---
PT RESTING IN BED, STILL DISORIENTED. REORIENTED TO TIME, PLACE, AND SITUATION NEEDED.
[2019-06-17] VITALS (28 sets, daily range): BP systolic 95–153; BP diastolic 53–94
--- NOTE | 2019-06-17 01:15 | NUR ---
PT HAS URGENCY TO URINATE BUT IS NOT ABLE TO WHEN URINAL IS PROVIDED. VITALS STABLE, CALL LIGHT IN REACH.
--- NOTE | 2019-06-17 03:00 | NUR ---
PT ASSISTED WITH URINATING, 200ML YELLOW URINE OUTPUT. PT ALSO REQUESTED JELLO WHICH WAS PROVIDED. NO DIFFICULTY SWALLOWING. CALL LIGHT IN REACH, WILL CONTINUE TO MONITOR
--- NOTE | 2019-06-17 05:15 | NUR ---
PT RESTING IN BED. NO SIGNS OF ACUTE DISTRESS. WILL CONTINUE TO MONITOR.
--- NOTE | 2019-06-17 06:56 | NUR ---
ORAL CARE DONE WITH PERIDEX
[2019-06-17 07:00] LABS: ALBUMIN 2.2 g/dL (3.4-5.0); ALKALINE PHOSPHATASE 59 U/L (46-116); ALT (SGPT) 21 U/L (10-68); BILIRUBIN - TOTAL 0.35 mg/dL (0.2-1.3); CALC OSMOLALITY 275 mosm/kg (275-300); CALCIUM 8.3 mg/dL (8.5-10.1); CARBON DIOXIDE 24.8 mmol/L (21.0-32.0); CHLORIDE - SERUM 105 mmol/L (98-107); CREATININE - SERUM 0.8 mg/dL (0.6-1.3); GLUCOSE 86 mg/dL (74-106); MAGNESIUM - SERUM 2.2 mg/dL (1.8-2.4); PHOSPHOROUS 3.3 mg/dL (2.5-4.9); POTASSIUM - SERUM 3.8 mmol/L (3.5-5.1); SODIUM 139 mmol/L (136-145); UREA NITROGEN 9 mg/dL (7-18); eGFR NON AFRICAN AMERICAN > 90 mL/min (90-120)
[2019-06-17 07:16] LABS: HEMATOCRIT 25.5 % (42.0-54.0); HEMOGLOBIN 8.4 g/dL (13.5-17.5); MCH 30.3 pg (26.0-34.0); MCHC 32.9 g/dL (31.0-37.0); MCV 92.1 fL (80.0-100.0); MEAN PLATELET VOLUME 9.9 fL (7.4-10.4); RBC 2.77 10x6/uL (4.20-6.10); RDW 13.3 % (11.5-14.5)
[2019-06-17 07:23] LABS: WBC 15.5 10x3/uL (4.8-10.8)
--- NOTE | 2019-06-17 08:32 | NUR ---
PT INC OF LOOSE STOOL WHILE UP IN CHAIR. PT IS ASKING TO GO BACK TO BED. INSTRUCTED I.S. AND MD ORDERS OOB FOR MEALS. PT ASKING TO USE BSC. ASSISTED TO BSC. AFIB RATE [address] COLLEEN CRUZ. NSR AFTER A FEW MIN NOTED. PT WITH DIFFICULTY FOLLOWING DIRECTION.
--- NOTE | 2019-06-17 11:24 | NUR ---
CHAIR ALARM SET OFF. PT ATTEMPTING TO GET OO CHAIR. ASSISTED PT TO BSC. LOOSE STOOL AND INC OF URINE. CLEANED AND BATHED LEGS AND FEET AND REPLACED TEDS AND SOCKS DUE TO URINE SOAKED. INSTRUCTED PT TO USE CALL LIGHT.
--- NOTE | 2019-06-17 13:22 | NUR ---
Nutrition Follow-up: Pt reports fair appetite/PO intake. Reports eating <50% of breakfast this AM. Diet: Cardiac Wt: 174# Last BM: pt reports 06/14 or 06/15 Labs reviewed Meds reviewed Continue current diet as tolerated. Offer nutrition supplements. [place] food preferences within diet restrictions. RD following.
--- NOTE | 2019-06-17 13:42 | NUR ---
PT INC OF URINE AGAIN. MOPPED FLOOR. ENCOURAGED PT TO USE URINAL.
--- NOTE | 2019-06-17 14:36 | NUR ---
ASSISTED PT TO BATHROOM TO VOID. PT ATTEMPTING TO VOID IN TOILET. PT UNABLE TO VOID IN TOILET. CLEANED FLOOR. REPLACED SOCKS.
--- NOTE | 2019-06-17 15:55 | NUR ---
PT CONTINOUSLY GETTING OUT OF CHAIR CONFUSED. CHAIR ALARM GOING OFF. STATES THAT HE IS GOING TO THE STORE. UNABLE TO REDIRECT PT. ASSISTED TO BED. BED ALARM ON.
--- NOTE | 2019-06-17 17:41 | NUR ---
PT ATTEMPTING TO GET OOB, BED ALARM SOUNDING. ASKING TO GO HOME AND STATES THAT HE WILL BE BACK TOMORROW. PT ANSWERS ORIENTATION QUESTIONS CORRECTLY. ASSIST PT TO BATHROOM. PT SITS ON TOILET AND VOIDS ON FLOOR.
--- NOTE | 2019-06-17 18:35 | NUR ---
PT CRAWLING OOB. ASSISTED BACK TO BED. CALL LIGHT IN REACH.
--- NOTE | 2019-06-17 19:30 | NUR ---
REPORT RECEIVED. INITIAL ASSESSMENT COMPLETE PT AWAKE ALERT AND ORIENTED TIMES 4. KNOWS HE IS IN ICU AND STATES HE IS HERE "BECAUSE OF HEART SURGERY" HOWEVER HAS TO BE REDIRECTED AND KEEPS TRYING TO GET OOB. BED ALARM ON AND WORKING AUDIBLY. FOLLOWS COMMANDS EQUAL STRENGTH. STATES HE HAS TO USE BATHROOM ASSISTED UP TO BSC URINE CLEAR YELLOW. ASSISTED BACK TO BED. REENGAGED BED ALARM ONCE SETTLED IN BED. CM READING SR WITHOUT ECTOPY ALARMS ON AND AUDIBILE ON ROOM AIR FAINT CRACKLES DIMINISHED BIBASILAR O2 SAT 98%. SR UP TIMES 3 FOR SAFETY AND BED MOBILITY CALL LIGHT IN REACH BED IN LOW POSITION. NO DISTRESS NOTED. CHEST TUBE TO WATERSEAL WITH MINIMAL SEROSANGUINOUS DRAINAGE SMALL AIR LEAK AWARE. DRESSING CDI PT STATES " TOLD ME I COULD GO OUTSIDE FOR FRESH AIR" INFORMED PT IT WAS RAINING AND COULD NOT SAFELY ACCOMODATE HIM OUTSIDE. VSS WILL CONTINUE TO MONITOR.
--- NOTE | 2019-06-17 19:45 | NUR ---
BED ALARMING INTO PTS ROOM HE HAS LEGS OFF TO SIDE STATES HE WAS JUST GOING TO GET HIM SOME COFFEE. INFORMED PT DUE TO SURGERY AND LINES TUBES HE WOULD NEED TO BE ASSISTED UP. AFTER GETTING PT REPOSITIONED IN BED ALARM REENGAGED. VSS CPOC
--- NOTE | 2019-06-17 20:00 | NUR ---
ANSWERED PTS CALL LIGHT NEEDING TO USE BATHROOM ASSISTED TO BSC AND BACK TO BED REPOSITIONED BED ALARM REENGAGED. PT C/O CHRONIC BACK PAIN AND STATES HIS INCISION HURTS MEDICATED PER EMAR PRN ORDER SEE EMAR
--- NOTE | 2019-06-17 21:00 | NUR ---
CHECKING ON PT AFTER PAIN MED HE SAYS IT HELPED BUT HE STILL WANTS ANOTHER PAIN MED. INFORMED ONLY ABLE TO GIVE ONE NEEDED. REPOSITIONED FOR COMFORT WILL CONTINUE TO MONITOR
--- NOTE | 2019-06-17 23:00 | NUR ---
REASSESSMENT MADE NO CHANGES PT CONTINUES TO BE WIDE AWAKE AFTER SCHEDULED VALIUM AND PRN PAIN MEDICATION ASKING FOR COFFEE INFORMED PT NEEDED TO TRY AND GET REST WATER OFFERED. VSS NO DISTRESS NOTED
[2019-06-18] VITALS (28 sets, daily range): BP systolic 98–181; BP diastolic 59–96
--- NOTE | 2019-06-18 00:40 | NUR ---
ANSWERED PTS CALL LIGHT HE STATES HIS BACK AND LEFT ARM HURTING FROM BLOOD PRESSURE CUFF. CHANGED CUFF TO RIGHT ARM AND MEDICATED PER PRN ORDERS SEE EMAR
--- NOTE | 2019-06-18 01:40 | NUR ---
BED ALARMING INTO ROOM PT ATTEMPTING TO GET OOB. AGAIN REMINDED PT NOT TO GET UP WITHOUT ASSISTANCE AND TO PLEASE USE CALL LIGHT TO CALL NURSE PT STATED "I CAN GET UP TO BATHROOM BY MYSELF" INFORMED PT OF WEAKNESS POST SURGERY AND OF DROP IN BLOOD PRESSURE WHICH CAN CAUSE PT TO BE DIZZY SO FOR SAFETY REASONS WOULD BE BETTER TO CALL FOR ASSISTANCE INSTEAD OF RISKING FALL. HE VERBALIZES UNDERSTANDING WILL CONTINUE TO MONITOR. ASSISTED PT BACK TO BED POSITIONED FOR COMFORT AND BED ALARM ENGAGED. CPOC
--- NOTE | 2019-06-18 03:45 | NUR ---
BED ALARMING PT ATTEMPTING TO GET OOB WANTING TO GO OUTSIDE. ASSISTED PT TO BSC BACK TO BED. CHECKING CT DRESSING SITE CLEAN DRY AND INTACT. DRESSING CHANGED WITH BETADINE BIOPATCH AND GAUZE COVERED WITH TEGADERM. PACER WIRES INTACT COILED AND SECURED WITH GAUZE.
--- NOTE | 2019-06-18 05:00 | NUR ---
ANSWERED PTS CALL LIGHT UP TO BSC WITH ASSIST CLEAR YELLOW URINE BACK TO BED POSITIONED FOR COMFORT BED ALARM ENGAGED. CALL LIGHT IN REACH CPOC
--- NOTE | 2019-06-18 06:05 | NUR ---
PT C/O BACK PAIN AND ALL OVER PAIN. MEDICATED WITH PRN MED SEE EMAR
--- NOTE | 2019-06-18 06:15 | NUR ---
AM LABS DRAWN SENT TO LAB RIGHT CENTRAL IV FLUSHES AND DRAWS EASILY. FLUSHED WITH NS AND SWAB CAPS APPLIED.
--- NOTE | 2019-06-18 06:30 | NUR ---
COMPLETE CHG BED BATH AND LINEN CHANGE. PT UP TO CHAIR WITH ASSIST. LONNIE CHAIR ALARM ENGAGED AND ALARM AUDIBLE. PT DID NOT SLEEP LAST PM. RESTED ONE TIME APPROXIMATELY FOR 45 MIN. WILL REPORT TO DAYSHIFT NURSE
[2019-06-18 06:43] LABS: HEMATOCRIT 27.2 % (42.0-54.0); HEMOGLOBIN 9.1 g/dL (13.5-17.5); MCH 30.5 pg (26.0-34.0); MCHC 33.5 g/dL (31.0-37.0); MCV 91.3 fL (80.0-100.0); MEAN PLATELET VOLUME 9.8 fL (7.4-10.4); RBC 2.98 10x6/uL (4.20-6.10); RDW 13.4 % (11.5-14.5); WBC 16.1 10x3/uL (4.8-10.8)
[2019-06-18 07:12] LABS: ALBUMIN 2.3 g/dL (3.4-5.0); ALKALINE PHOSPHATASE 65 U/L (46-116); ALT (SGPT) 31 U/L (10-68); BILIRUBIN - TOTAL 0.42 mg/dL (0.2-1.3); CALC OSMOLALITY 275 mosm/kg (275-300); CALCIUM 8.3 mg/dL (8.5-10.1); CARBON DIOXIDE 24.5 mmol/L (21.0-32.0); CHLORIDE - SERUM 103 mmol/L (98-107); CREATININE - SERUM 0.8 mg/dL (0.6-1.3); GLUCOSE 85 mg/dL (74-106); MAGNESIUM - SERUM 1.9 mg/dL (1.8-2.4); PHOSPHOROUS 3.8 mg/dL (2.5-4.9); POTASSIUM - SERUM 3.6 mmol/L (3.5-5.1); PROTEIN - SERUM 6.3 g/dL (6.4-8.2); SODIUM 139 mmol/L (136-145); UREA NITROGEN 9 mg/dL (7-18); eGFR NON AFRICAN AMERICAN > 90 mL/min (90-120)
--- NOTE | 2019-06-18 07:17 | NUR ---
ORAL CARE DONE WITH PERIDEX
--- NOTE | 2019-06-18 08:03 | NUR ---
5meq kcl iv per ELECTROLYTE PROTOCOL GIVEN. PT UP IN CHAIR. BREAKFAST TRAY SERVED AND PT FEEDS SELF WITH OUT PROBLEMS. PT GETS OOB WITH OUT USING CALL LIGHT. FORGETS THAT HE IS HOOKED TO A CT. STARTS WALKING WITH OUT NOTICING THAT HE IS HOOKED TO CM AND BP LINES AND CT. PT CAN ANSWER ORIENTATION QUESTIONS APPROPRIATLY BUT HAS DIFFICULTY REMEMBERING THAT HE HAD A CABG.
--- NOTE | 2019-06-18 09:31 | NUR ---
ASSIST PT TO BATHROOM. DIAPER SOAKED WITH URINE. PT HAD BM AND VOIDS IN TOILET BUT STILL WITH DIFFICULTY HITTING THE TOILET WHILE SITTING ON IT. DR LAWSON HERE.
--- NOTE | 2019-06-18 09:33 | NUR ---
PT AMB ERVIN WITH PT. HR 130 TO 150 WITH ACTIVITY. HR NSR 90 AT REST.
--- NOTE | 2019-06-18 09:56 | NUR ---
PT CONTINOUSLY SETTING OFF CHAIR ALARM AND IS UNABLE TO REDIRECT.
--- NOTE | 2019-06-18 11:23 | NUR ---
PT CONTINUES TO BE CONFUSED TO SITUATION AND HAVING DIFFICULTY TO STAY SEATED. PT CAUSES CHAIR ALARM TO GO OFF FREQUENTLY. PT FORGETS THAT HE HAS A CT.
--- NOTE | 2019-06-18 13:42 | NUR ---
PT IS UP AD YNES. REDIRECTED HIM HE WAS WALKING TOWARD THE DOOR. STATES HE IS GOING OUT SIDE. REC;D CALL FRO BROTHER SAFIA. SAFIA STATES THAT PT TOLD HIME TO COME GET HIM BECAUSE HE WAS GOING HOME. INSTRUCTED PT AND HIS BROTHER THAT DC POSSIBLE THURSDAY. BOTH VERB UNDERSTANDING. PT ASKING THIS RN IF THE RABBIT WANTS TO GO OUT. REORIENTED. PT VERB UNDERSTANDING.
--- NOTE | 2019-06-18 14:13 | NUR ---
SPOKE TO DR LOPES RE: PT'S CONFUSION. DR LOPES ORDERS TO CONTINUE.
--- NOTE | 2019-06-18 14:27 | NUR ---
REPORTED TO DR RICE ABOUT POTASSIUM RESULTS. REC'D NEW ORDERS.
--- NOTE | 2019-06-18 17:00 | NUR ---
PT AMB IN HALLWAY, PLEASANT BUT FORGETFUL. STATES "GOING OUTSIDE ORD GOING DOWNSTAIRS" FREQUENTLY. STEADY GAIT. REORIENTS WELL TEMPORARILY.
--- NOTE | 2019-06-18 17:24 | NUR ---
PT ASKING THIS RN TO ASSIST HIM TO USE HIS CELL PHONE TO CALL BAIG. ASSISTED WITH PHONE CALL. PT ATTEMPTING TO GET DRESSED SEVERAL TIMES TODAY. REDIRECTED PT TO CONTINUE TO WEAR HOSPITAL GOWN. PT AGREEABLE. HR 135 WHEN UP PACING AROUND DEPT. INSTRUCTED PT TO SIT AND REST. HR DROPS TO 98 AT REST. PT NEEDS FREQ REDIRECTING DUE TO FORGETFULNESS.
--- NOTE | 2019-06-18 19:00 | NUR ---
RECEIVING REPORT PT WALKING AROUND IN ROOM STEADY GAIT. DAY SHIFT NURSE MEDHAT ROBISON STATED BP ELEVATED SHE HAD NOTIFIED DR RICE RETURN ORDER ADDITIONAL DOSE OF LOPRESSOR 12.[address] RICE. PT ALERT ORIENTED BACK TO BED TO ASSIST IN LOWERING BP. PT HAD ALSO JUST RECEIVED PAIN MED PER PRN ORDER BY DAYSHIFT NURSE. PT RESP EVEN NONLABORED ON ROOM AIR SATS 98%. BREATH SOUNDS CLEAR. CM READING SR AT THIS TIME ALARMS ON AND AUDIBLE PT DID HAVE EPISODE OF AFIB RVR PER REPORT WILL MONITOR. BED LOW POSITION CALL LIGHT IN REACH CPOC
--- NOTE | 2019-06-18 19:07 | NUR ---
BP 164/81, HR 82. RT ARM. LT ARM 181/82. REPORTED TO DR RICE. REC'D NEW ORDER FOR NOHEMY.
--- NOTE | 2019-06-18 20:14 | NUR ---
PT UP WALKING OUT TO NURSES STATION HEADED TOWARDS EXIT DOOR. INTERCEPTED AND INFORMED PT HAD TO STAY IN HIS ROOM AND UNABLE TO GO OUTSIDE AT THIS TIME. PT RETURNS TO ROOM BACK TO BED.
--- NOTE | 2019-06-18 21:00 | NUR ---
PT WALKING WITH STEADY GAIT OUT OF ROOM STATING HE HEARS HIS BROTHER DIGNA IN NEXT ROOM INFORMED HIS BROTHER WAS NOT HERE AND HE COULDNT GO IN ANOTHER PTS ROOM. PT STATES "I HAVE TO GO HOME AND CHECK ON MY CATS" INFORMED STILL NEEDED CARE AFTER SURGERY HE SAID "I KNOW ILL COME RIGHT BACK" REORIENTED PT AND INFORMED OF HEART RATE AND BP ELEVATED TODAY ONCE RESOLVED HE COULD GO HOME. PT VERBALIZES UNDERSTANDING ASSISTED BACK TO BED. BED ALARM ENGAGED EVEN THOUGH PT ABLE TO GET UP WITH STEADY GAIT ONCE IN BED CM AND BLOOD PRESSURE CUFF ATTACHED DIDNT WANT PT TO TRIP
--- NOTE | 2019-06-18 23:12 | NUR ---
BED ALARM SOUNDING IN TO CHECK ON PATIENT. NEEDED UP TO BATHROOM REMOVED CUFF AND O2 SAT CORD PT WALKS WITH STEADY GAIT THEN BACK TO BED REPOSITIONED FOR COMFORT PT REQUESTS PAIN PILL STATES HIS BACK ALWAYS HURTS BUT "RIGHT NOW I AM SORE ALL OVER" MEDICATED WITH PRN PAIN MED SEE EMAR
[2019-06-19] VITALS (23 sets, daily range): BP systolic 93–151; BP diastolic 46–84
--- NOTE | 2019-06-19 01:00 | NUR ---
CHECKING ON PT APPEARS TO BE SLEEPING WITH EYES CLOSED. DID NOT DISTURB PT HE DID NOT GET ANY REST LAST PM. VSS WILL CONTINUE TO MONITOR CPOC BED LOW POSITION SIDE RAILS UP TIMES 3 FOR BED MOBILITY AND SAFETY
--- NOTE | 2019-06-19 03:00 | NUR ---
REASSESSMENT MADE NO CHANGES PT HAS RESTED WELL. DID NOT SLEEP AT ALL LAST PM.
--- NOTE | 2019-06-19 05:00 | NUR ---
UP TO BATHROOM AMBULATES WITH STEADY GAIT
--- NOTE | 2019-06-19 06:10 | NUR ---
DOWN TO RADIOLOGY FOR PA AND LAT CHEST FILM VIA WHEELCHAIR WITH RADIOLOGY STAFF
--- NOTE | 2019-06-19 06:20 | NUR ---
BACK FROM RADIOLOGY VIA WHEELCHAIR
[2019-06-19 06:31] LABS: ALBUMIN 2.4 g/dL (3.4-5.0); ALKALINE PHOSPHATASE 66 U/L (46-116); ALT (SGPT) 31 U/L (10-68); BILIRUBIN - TOTAL 0.33 mg/dL (0.2-1.3); CALC OSMOLALITY 276 mosm/kg (275-300); CALCIUM 8.6 mg/dL (8.5-10.1); CARBON DIOXIDE 25.8 mmol/L (21.0-32.0); CHLORIDE - SERUM 105 mmol/L (98-107); CREATININE - SERUM 0.7 mg/dL (0.6-1.3); GLUCOSE 86 mg/dL (74-106); MAGNESIUM - SERUM 2.1 mg/dL (1.8-2.4); PHOSPHOROUS 3.9 mg/dL (2.5-4.9); PROTEIN - SERUM 6.3 g/dL (6.4-8.2); SODIUM 140 mmol/L (136-145); UREA NITROGEN 11 mg/dL (7-18); eGFR NON AFRICAN AMERICAN > 90 mL/min (90-120)
[2019-06-19 06:38] LABS: HEMATOCRIT 27.8 % (42.0-54.0); HEMOGLOBIN 9.3 g/dL (13.5-17.5); MCH 30.7 pg (26.0-34.0); MCHC 33.5 g/dL (31.0-37.0); MCV 91.7 fL (80.0-100.0); MEAN PLATELET VOLUME 9.3 fL (7.4-10.4); RBC 3.03 10x6/uL (4.20-6.10); RDW 13.3 % (11.5-14.5); WBC 13.4 10x3/uL (4.8-10.8)
--- NOTE | 2019-06-19 07:00 | NUR ---
PT UP TO CHAIR INDEPENDENT STEADY GAIT
--- NOTE | 2019-06-19 07:16 | NUR ---
ORAL CARE DONE WITH PERIDEX
--- NOTE | 2019-06-19 07:35 | NUR ---
PT SITTING IN CHAIR. BREAKFAST TRAY SERVED. PT DOES NOT START TO EAT. ASSISTED PT WITH BREAKFAST. PT TOOK FEW BITES AND STATES" IM DONE". ENCOURAGED PT TO TAKE IN NUTRITION. PT CONTINUES TO NOT ATTEMPT TO EAT.
--- NOTE | 2019-06-19 10:14 | NUR ---
BATH AND GOWN AND PETERSON HOSE CHANGE COMPLETE. PT BEBETO WELL. PT C/O INCISIONAL PAIN. PO PAIN MEDS GIVEN. PT REPORTS ADEQUATE R/O PAIN WITH MEDS. PT NOW RESING QUIETLY.
--- NOTE | 2019-06-19 11:18 | NUR ---
PT RESTING QUIETLY. VSS, DR RICE HERE THIS AM ON ROUNDS.
--- NOTE | 2019-06-19 11:36 | NUR ---
LUNCH TRAY PROVIDED. PT UP AD YNES, STEADY GAIT. PT REFUSING TO EAT. BOOST DRINK GIVEN AND PT DRANK 1/2.
--- NOTE | 2019-06-19 13:16 | NUR ---
PT AMB ERVIN, STEADY GAIT. PLEASENTLY CONFUSED TO SITUATION. ASKING OVER AND OVER AGAIN ABOUT THE PHYSICIANS ALLOWING HIM TO GO HOME. COOPERATIVE.
--- NOTE | 2019-06-19 13:58 | NUR ---
PT ASKING FOR PAIN MEDS. IS UP WALKING AROUND. RATES PAIN 4 TO 5 ON SCALE 1 TO 10. PO PAIN MED GIVEN.
--- NOTE | 2019-06-19 18:25 | NUR ---
PT CONTINUES TO WALK AROUND THE ERVIN, STEADY GAIT. COOPERATIVE.FORGETFUL.
--- NOTE | 2019-06-19 23:00 | NUR ---
190 ASSESSMENT DONE SEE FLOW SHEET. PT UP WALKING [place] WAY. PT CONFUSED BUT REORIENTS QUICKLY. VSS. 2100 MEDS GIVEN PER MAR. VSS. NO SIGNS OF ACUTE DISTRESSS NOTED. 2299 REASSESSMENT DONE SEE FLOW SHEET. PT AMBULATED TO BATHROOM NO DISTRESS NOTED. BM AND VOID NOTED. VSS WILL CONTINUE TO MONITOR.
[2019-06-20] VITALS (9 sets, daily range): BP systolic 103–126; BP diastolic 56–80
--- NOTE | 2019-06-20 03:00 | NUR ---
0100 WATER PROVIDED PER PT REQUEST. VSS 0300 REASSESSMENT DONE SEE FLOW SHEET VSS WILL CONTINUE TO MONITOR.
[2019-06-20 05:29] LABS: HEMATOCRIT 27.8 % (42.0-54.0); HEMOGLOBIN 9.2 g/dL (13.5-17.5); MCH 30.2 pg (26.0-34.0); MCHC 33.1 g/dL (31.0-37.0); MCV 91.1 fL (80.0-100.0); MEAN PLATELET VOLUME 9.3 fL (7.4-10.4); RBC 3.05 10x6/uL (4.20-6.10); RDW 13.2 % (11.5-14.5); WBC 14.7 10x3/uL (4.8-10.8)
[2019-06-20 06:05] LABS: ALBUMIN 2.5 g/dL (3.4-5.0); ALKALINE PHOSPHATASE 69 U/L (46-116); ALT (SGPT) 36 U/L (10-68); BILIRUBIN - TOTAL 0.26 mg/dL (0.2-1.3); CALC OSMOLALITY 271 mosm/kg (275-300); CALCIUM 8.5 mg/dL (8.5-10.1); CARBON DIOXIDE 26.4 mmol/L (21.0-32.0); CHLORIDE - SERUM 104 mmol/L (98-107); GLUCOSE 88 mg/dL (74-106); POTASSIUM - SERUM 3.9 mmol/L (3.5-5.1); PROTEIN - SERUM 6.5 g/dL (6.4-8.2); SODIUM 137 mmol/L (136-145); UREA NITROGEN 10 mg/dL (7-18)
[2019-06-20 06:10] LABS: CREATININE - SERUM 0.9 mg/dL (0.6-1.3); eGFR NON AFRICAN AMERICAN > 90 mL/min (90-120)
--- NOTE | 2019-06-20 07:00 | NUR ---
REPORT RECIEVED FROM THE OFF GOING RN. SEE ASSESSMENT INT HE PTS FLOW SHEET. PT UP AMBULATING WITH A NORMAL STEADY GAIT. PT BACK INTO HIS ROOM AND HOOKED TO ICU MONITORS. NSR WITH FREQUENT PAC'S NOTED. MIDSTERNAL INCISION WELL APPROIXIMATED AND SCREEN WRITER. SUBSTERNAL DRESSING C/D/I. MEAL TRAY PROVIDED FOR THE PT. PT INSTRUCTED TO USE HIS IS 10X'S/H AND TO TCDB Q1 HOUR. PT PULLING ABOUT [id number] ON HIS IS. CALL LIGHT IN REACH. WILL COTN POC.
--- NOTE | 2019-06-20 09:04 | NUR ---
PT AMBULATING UP AND DOWN THE ERVIN WAYS. PT HAS A NORMAL STEADY GAIT. DENIES NEEDS. WILL CONT POC.
[2019-06-20] MEDS ORDERED: AMIODARONE HCL200 MG PO (09:55)
[2019-06-20] MEDS ORDERED: LOPRESSOR25 MG PO (09:56)
[2019-06-20] MEDS ORDERED: ASPIRIN EC81 M1 PO (09:57)
[2019-06-20] MEDS ORDERED: COLACE100 MG PO (09:58)
--- NOTE | 2019-06-20 10:25 | NUR ---
RIGHT JUGULAR CVL LINE DC'D PER ORDERS. PT TOLERATED WELL. PT INSTRUCTED TO LIE FLAT FOR [address] RABAGO PUT IN ORDERS FOR DISCHARGE.
--- NOTE | 2019-06-20 10:30 | NUR ---
PT GOT OOB AND WENT TO THE BATHROOM. I INTERCETPTED THE PT AND EXPLAINED THAT HE NEEDS TO LIE DOWN FOR 30 MINUTES AND PT NON COOPERATIVE. VSS. CALL LIGHT IN REACH. WILL CONT POC.
--- NOTE | 2019-06-20 11:17 | NUR ---
TPM WIRES REMOVED PER ASHLEIGH ROBISON. DC INSTRUCTIONS WENT OVER WITH THE PT AND THE PTS STEP SON AT THE BEDSIDE. NO QUESTIONS ASKED AT THIS TIME. CALL LIGHT IN REACH. WILL CONT POC.
--- NOTE | 2019-06-20 11:46 | NUR ---
VSS. PT BELONINGS ACCOUNTED FOR. DC INSTRUCTIONS WENT OVER WITH THE PT WITH THE STEP SON PRESENT. DENIES QUESTIONS. OFFERED THE PT A WC AND HE DECLINED. PT LEFT WITH HIS STEP SON IN A STABLE CONDITION. NO S/SX OF DISTRESS/DISCOMOFRT NOTED.
--- NOTE | 2019-06-20 16:54 | MORECARE ---
CASE MANAGEMENT DISCHARGE SUMMARY PATIENT: CATHERINE BETTS UNIT: [id number] ADM DATE: 06/13/19 AGE: 64 : 59 SEX: M ROOM/BED: [facility] AUTHOR: ELIZABETH,DOC PHYSICIAN: REFERRING PHYSICIAN: JANNA RICE MD DATE OF SERVICE: 06/20/19 Discharge Plan Patient Name: CATHERINE BETTS Facility: [facility]:[place] : 1955 Planned Disposition: Home Anticipated Discharge Date: Discharge Date: 06/20/2019 Expected LOS: Initial Reviewer: [email or web address] Initial Review Date: 06/15/2019 Generated: 06/20/19 5:53 pm Comments DCP- Discharge Planning Updated by [email or web address]: Shalonda Austin on 06/20/19 3:[address] D/C HOME WITH FAMILY D/C IMM SIGNED @ 1005 DCP- Discharge Planning Updated by [email or web address]: Shalonda Austin on 06/16/19 1:[address] Patient Name: CATHERINE BETTS Admission Status: Urgent Accout number: [id number] Admission Date: 06-13-2019 : 1955 Admission Diagnosis: Attending: JANNA RICE Current LOS: 3 Anticipated DC Date: Planned Disposition: Home Primary Insurance: MEDICARE A & B Discharge Planning Comments: CM called and spoke with patient's son Vlad since patient is confused at this time CM explained CM role and obtaining verbal consent. Patient lives at home with his son Vlad where he is independent with his care and plans to return there upon discharge. Patient feels this would be a safe discharge. CM discussed availability / needs of home health and medical equipment. Patient denies any discharge needs at this time. Patient states he will have his family drive him home upon discharge. CM will continue to follow and assist as needed with discharge planning / needs. Dot Compliance Coordinator: Shalonda Austin DCP- Discharge Planning Updated by [email or web address]: Shalonda Austin on 06/14/19 5:[address] PATIENT RECENTLY EXTUBATED NO FAMILY AVAILABLE TO ANSWER D/C PLANNING QUESTIONS. CM WILL SEE PATIENT IN AM. DCPIA - Discharge Planning Initial Assessment Updated by [email or web address]: Shalonda Austin on 06/16/19 2:46 pm * Is the patient Alert and Oriented? Yes * How many steps to enter\exit or inside your home? RAMP * PCP ANAND * [facility]acy [facility] * Preadmission Environment Home with Family * ADLs Independent * Other Equipment WALKER, W/C * List name and contact numbers for known caregivers / representatives who currently or will assist patient after discharge: VLAD ACEVEDO- [phone] * Verbal permission to speak to the caregivers and representatives has been obtained from the patient. Yes * Community resources currently utilized None * Additional services required to return to the preadmission environment? No * Can the patient safely return to the preadmission environment? Yes * Has this patient been hospitalized within the prior 30 days at any hospital? No Coverage Notice Reviewer: [email or web address] Subhash Austin Notice Issued Date-Time: 06/20/2019 10:05 Notice Type: IM Discharge Notice Notice Delivered To: Patient Relationship to Patient: Self Department Assistant Name: Delivery Method: HAND - Hand Delivered Geovanna Days: Prior Verbal Notification: Recipient Understood Notice: Yes Recipient Signature: Yes Med Rec Note Co-signed by Attending: Coverage Notice Comment: Last DP export: 06/16/19 1:53 p Patient Name: CATHERINE BETTS Page [id number] at 1654 All edits/amendments must be made on the electronic document DICTATION DATE: 06/20/191652 RANGELAND MANAGEMENT SPECIALIST: CANDIDA 06/20/191652 RPT#: [id number] DC DATE:06/20/19 STATUS: DIS IN [facility] [address] [place] [address] END OF REPORT
== END 2019-06-20 11:52 | disposition home or self-care (01) | DRG 236 ==
LOC: D.SDCHOLD 06-13 07:30 → D.CVICU 06-13 10:59 → D.SDCHOLD 06-13 13:00 → D.CVICU 06-20 11:52
PROVIDERS: ADMIT Thoracic Surgery (Cardiothoracic Vascular Surgery); ATTEND Thoracic Surgery (Cardiothoracic Vascular Surgery)
PROC: 021209W Bypass Coronary Artery, Three Arteries from Aorta with Autologous Venous Tissue, Open Approach (ICD-10-PCS; 2019-06-14)
PROC: 06BP4ZZ Excision of Right Saphenous Vein, Percutaneous Endoscopic Approach (ICD-10-PCS; 2019-06-14)
PROC: 5A1221Z Performance of Cardiac Output, Continuous (ICD-10-PCS; 2019-06-14)
PROC: B24BZZ4 Ultrasonography of Heart with Aorta, Transesophageal (ICD-10-PCS; 2019-06-14)
PROC: 02100Z9 Bypass Coronary Artery, One Artery from Left Internal Mammary, Open Approach (ICD-10-PCS; principal; 2019-06-14 07:30)
DX: I25.119 Atherosclerotic heart disease of native coronary artery with unspecified angina pectoris (principal); I24.9 Acute ischemic heart disease, unspecified; F17.203 Nicotine dependence unspecified, with withdrawal; K76.6 Portal hypertension; J95.812 Postprocedural air leak; I10 Essential (primary) hypertension; F17.200 Nicotine dependence, unspecified, uncomplicated; F41.8 Other specified anxiety disorders; M19.90 Unspecified osteoarthritis, unspecified site; E78.5 Hyperlipidemia, unspecified; I73.9 Peripheral vascular disease, unspecified; K74.60 Unspecified cirrhosis of liver; G89.29 Other chronic pain; R06.89 Other abnormalities of breathing; J43.8 Other emphysema; D72.819 Decreased white blood cell count, unspecified; D64.9 Anemia, unspecified; I48.91 Unspecified atrial fibrillation; R41.0 Disorientation, unspecified

== ENCOUNTER → 2020-02-22 08:36 | Outpatient (CLI) | payer MEDICARE ==
[2019-06-14 09:57] VITALS: BMI 24.3
[~2020-02-22 08:36] MED LIST changes: +AMIODARONE HCL200 MG PO; +ASPIRIN EC81 M1 PO; +CELEXA20 MG PO; +COLACE100 MG PO; +CYCLOBENZAPRINE PO; +LOPRESSOR25 MG PO; +NEURONTIN 300300 MG PO; +RESTORIL15 MG PO
== END | disposition home or self-care (01) ==
LOC: D.US 12-23 10:00
PROVIDERS: ATTEND Thoracic Surgery (Cardiothoracic Vascular Surgery)
DX: I65.23 Occlusion and stenosis of bilateral carotid arteries (principal); I73.9 Peripheral vascular disease, unspecified

== ENCOUNTER 2020-02-28 05:37 | Inpatient (IN) | payer MEDICARE ==
[~2020-02-28] VITALS: Ht 172.7 cm; Wt 79.6 kg
[2020-02-28] VITALS (17 sets, daily range): BP systolic 112–143; BP diastolic 62–94; BMI 27.6; BMI 28.8
[2020-02-28 05:58] LABS: HEMATOCRIT 39.9 % (42.0-54.0); HEMOGLOBIN 13.3 g/dL (13.5-17.5); MCH 30.9 pg (26.0-34.0); MCHC 33.3 g/dL (31.0-37.0); MCV 92.8 fL (80.0-100.0); MEAN PLATELET VOLUME 9.8 fL (7.4-10.4); RBC 4.3 10x6/uL (4.20-6.10)
[2020-02-28 06:10] LABS: APTT 31.4 SECONDS (22.8-39.4); INR 0.99 (0.85-1.17); PROTIME 13.1 SECONDS (11.6-15.0)
[2020-02-28 06:23] LABS: ALBUMIN 3.7 g/dL (3.4-5.0); BILIRUBIN - TOTAL 0.28 mg/dL (0.2-1.3); CARBON DIOXIDE 26.4 mmol/L (21.0-32.0); CREATININE - SERUM 1.8 mg/dL (0.6-1.3); POTASSIUM - SERUM 3.4 mmol/L (3.5-5.1); PROTEIN - SERUM 8.1 g/dL (6.4-8.2)
[2020-02-28 07:26] LABS: BACTERIA FEW /hpf (NEGATIVE); BILIRUBIN NEGATIVE (NEGATIVE); EPITHELIAL CELLS 0-5 /hpf (0-5); GLUCOSE NEGATIVE (NEGATIVE); KETONE NEGATIVE (NEGATIVE); NITRITE NEGATIVE (NEGATIVE); RED CELLS - URINE RARE /hpf (0-5); SPECIFIC GRAVITY 1.015 (1.005-1.020); UROBILINOGEN NORMAL (NORMAL); WHITE CELLS - URINE 0-5 /hpf (NEGATIVE)
--- NOTE | 2020-02-28 12:36 | NUR ---
PT RECIEVED EASILY AROUSABLE ALERT, CONFUSED TO SITUATION AND REORIENTED NEEDED, NO NEURO DEFICITS NOTED, VSS, R IJ CVL DRESSING WITH SOME BLEEDING NOTED, SAND BAG APPLIED PER OR STAFF, L NECK INCISION CDI WITH JUAN DRAIN COMPRESSED, RACHEL DRAINING YELLOW URINE, DENIES ALL NEEDS, WILL CONTINUE TO MONITOR
--- NOTE | 2020-02-28 18:44 | NUR ---
PT TOLERATING CLEAR LIQUID DINNER TRAY VSS DENIES ALL NEEDS, PAIN MANAGED WITH PRN MEDICATION CALL LIGHT WITHIN REACH
--- NOTE | 2020-02-28 19:00 | NUR ---
REPORT RECEVIED FROM THE OFF GOING RN. SEE ASSESSMENT IN THE PTS FLOW SHEET. FACE AND SMILE SYMETRICAL TRACHEA MIDLINE WITH NO STRIDOR NOTED. RIGHT IJ CVL NOTED. BLOODY OOZ NOTED. MIDSTERNAL DRESSING C/D/I. INCISION AND DRESSING TO LEFT ANTIEIOR NECK C/D/I. JUAN X1 NOTED COMPRESSED WTIH BLOODY DRAINAGE NOTED. RIGHT RADIAL CAMILA NOTED WITH A GOOD WAVE FORM AND WRIST PROTECTOR ON. CAP REFILL <3 SECONDS. FC NOTED WITH CLEAR, YELLOW URINE. CALL LIGHT IN REACH. WILL CONT POC.
--- NOTE | 2020-02-28 19:30 | NUR ---
SPOKE WITH DR RICE ABOUT CVL OOZING BLOOD AND PT BECOMING HYPERTENSIVE. UPDATE GIVEN TO DR RICE. SEE ORDERS. WILL CONT POC.
--- NOTE | 2020-02-28 22:36 | NUR ---
CVL DC'D PER DR MACIAS ORDERS. PRESSURE DRESSING APPLIED. 20 GAUGE IV STARTED X1 ATTEMPT TO THE LEFT FA. PATENT WITH NO S/SX OF INFILTRATION NOTED. DRESSING C/D/I. CALL LIGHT IN REACH. [facility] OTN POC.
[2020-02-29] VITALS (43 sets, daily range): BP systolic 105–148; BP diastolic 55–85; Ht 172.7 cm; Wt 79.6 kg
--- NOTE | 2020-02-29 01:34 | NUR ---
PT ASSISTED TO THE SIDE OF THE BED AND DANLGED. PT TOLERATED WELL. VSS WILL CONT POC.
--- NOTE | 2020-02-29 06:12 | NUR ---
FULL CHD BEDBATH GIVEN. PT ASSISTED OOB AND INTO THE BEDSIDE CHAIR. PT TRANSFERED WELL. VSS. WILLC ONT POC.
--- NOTE | 2020-02-29 08:36 | NUR ---
0700 PT RECIEVED UP IN CHAIR ALERT AND ORIENTED VSS DENIES PAIN AND ALL NEEDS, L CEA INCISION CDI, JUAN DRAIN COMPRESSED, A LINE ZEROED WITH GOOD WAVEFORM, RACHEL DRAINING YELLOW URINE, WILL CONTINUE TO MONITOR 0830 TOOK AM MEDS AND ATE BREAKFAST WITHOUT DIFFICULTY
--- NOTE | 2020-02-29 09:44 | NUR ---
PT PUT SELF IN BED AND BP ELEVATED TO 170, NITRO GTT STARTED PER EMAR, DR RICE IN UNIT AND AWARE, BED ALARM ON, CHAIR ALARM APPLIED TO CHAIR.
--- NOTE | 2020-02-29 14:35 | NUR ---
1000 DR RICE REMOVED JUAN DRAIN 1100 ASSISTED OOB FOR LUNCH 1200 ATE 25% LUNCH 1400 ASSISTED BACK TO BED
--- NOTE | 2020-02-29 14:56 | NUR ---
CAMILA AND RACHEL DCD TIP INTACT URINAL PROVIDED
--- NOTE | 2020-02-29 18:31 | NUR ---
1700 ASSISTED UP TO CHAIR FOR DINNER, VOIDED 1830 ASSISTED TO BATHROOM AND BACK TO BED
--- NOTE | 2020-02-29 19:35 | NUR ---
PT A/OX4, LUNGS CLEAR, DRSG INTACT TO LEFT NECK AND MIDSTENAL INCISION, URINAL IN REACH @ BEDSIDE, PETERSON'S TO BILAT LOWER LEGS, VITALS STABLE
--- NOTE | 2020-02-29 21:30 | NUR ---
PT AWAKE WATCHING TV WITH NO DISTRESS, WILL CONT TO MNOITOR
--- NOTE | 2020-02-29 23:30 | NUR ---
RESTING QUIETLY, VITALS STABLE, WILL CONT TO MONITOR
[2020-03-01] VITALS (7 sets, daily range): BP systolic 112–151; BP diastolic 71–84
--- NOTE | 2020-03-01 01:35 | NUR ---
PT ASLEEP WITH NO DISTRESS NOTED, WILL CONT TO MONITOR
--- NOTE | 2020-03-01 03:30 | NUR ---
pt up to bathroom with standby assist, no c/o, vitals stable
--- NOTE | 2020-03-01 05:00 | NUR ---
pt up to chair, bathed self, linens changed, pt states he is hoping to be discharged home today, no c/o
--- NOTE | 2020-03-01 07:00 | NUR ---
PT REPORT RECEIVED FROM BIG 6 DEALER NURSE. NO ACUTE SIGNS OF DISTRESS NOTED. SHIFT ASSESSMENT COMPLETED. PT UP TO BATHROOM TO VOID. BACK IN CHAIR FOR BREAKFAST. WILL CONTINUE TO MONITOR
--- NOTE | 2020-03-01 10:09 | NUR ---
PT RESTING IN BED. STATES THAT HE IS SLEEPY. WILL GET PT BACK UP IN CHAIR FOR LUNCH.
--- NOTE | 2020-03-01 11:47 | NUR ---
PT UP WALKING UNIT. TOLERATING WELL. STATED HE WOULD WALK A LAP THEN SIT DOWN TO EAT. WILL CONTINUE TO MONITOR
[2020-03-01] MEDS ORDERED: ASPIRIN EC81 M1 PO (11:56)
[2020-03-01] MEDS ORDERED: PLAVIX75 MG PO (12:01)
--- NOTE | 2020-03-01 12:42 | OP ---
PATIENT NAME: CATHERINE BETTS MEDICAL RECORD: [id number] :[birth year] LOCATION:[id number] ADMISSION DATE:02/28/20 SURGEON: JANNA RICE MD DATE OF OPERATION: 02/28/2020 SURGEON: Janna Rice MD PROCEDURE PERFORMED: 1. Left carotid endarterectomy. 2. Removal of upper five sternal wires. PREOPERATIVE DIAGNOSES: Severe left internal carotid artery stenosis and chest wall pain with history of coronary artery bypass graft and sternal wires. POSTOPERATIVE DIAGNOSES: Severe left internal carotid artery stenosis and chest wall pain with history of coronary artery bypass graft and sternal wires, intraluminal thrombus. ANESTHESIA: General endotracheal anesthesia. ESTIMATED BLOOD LOSS: 50 cc. COMPLICATIONS: None. SPECIMENS: Plaque with adherent thrombus. CONDITION: Stable. DISPOSITION: CV ICU. OPERATIVE FINDINGS: 1. Severe plaque in the carotid bulb, the plaque feathered well distally and there was adherent thrombus in the internal carotid as revealed on the CTA. 2. Removal of the upper five sternotomy wires through two small incisions. INDICATION: Progressive carotid stenosis with intraluminal thrombus and chest wall pain and skin sensitivity. ANESTHESIA: General endotracheal anesthesia. PROCEDURE IN DETAIL: The patient was brought to the operative suite. General anesthesia was obtained. The patient was prepped and draped. An oblique incision was made in the left neck, taken down through the subcutaneous tissue to the common carotid, which was dissected out. External carotid and thyroid branch were dissected out. Internal carotid was dissected out distally to a relatively normal region of the artery. Heparin was given. After the heparin circulated, back bleeding was controlled in the internal carotid with a bulldog clamp. Inflow with a vascular clamp, backbleeding with the external carotid and thyroid branch with vessel loops. EEG and cerebral oximetry were monitored and remained normal. The arteriotomy was begun with the common carotid artery taken out the region of dense calcification and passed the thrombus into a relatively normal region of internal carotid. Backbleeding was allowed from the internal carotid and it was brisk. The plaque was divided in the common carotid artery with an eversion endarterectomy of the external carotid and then the plaque feathered well distally and was removed intact with the thrombus. Thorough OPERATIVE REPORT [id number] CATHERINE BETTS irrigation was undertaken. All bits of loose debris were removed. A CorMatrix patch was fashioned to the appropriate size, sutured along the edge of the arteriotomy and prior to completing the anastomosis backbleeding was allowed for all 3 major vessels. The endarterectomy bed was thoroughly flushed. Anastomosis was completed and flow restored, first to the external carotid and then to the internal carotid. Multiple patch sutures were used with evidence of platelet dysfunction due to Plavix. Hemostasis was assured. A drain was placed through a separate stab wound and the wound was closed with interrupted two running layers and skin sutures. Dermabond was placed and the patient was stable. Two incisions were made, one over the manubrium, one over the body of the sternum, and working through the small incisions the middle three and the upper two wires were individually grasped and cut and removed intact. The wounds were irrigated and then closed in 2 layers. The patient was stable to recovery room and neurologically intact. TRANSINT:[id number] Voice Confirmation ID: [id number] DOCUMENT ID: [id number] JANNA RICE MD at 1242 CC: [id number] DICTATION DATE: 02/29/20 1236 EXTENSION SERVICE AGENT: 02/29/20 1354 ADM IN [facility] [address] [place] [address]
[2020-03-01] MEDS ORDERED: LOPRESSOR25 MG PO (12:46)
--- NOTE | 2020-03-01 14:30 | NUR ---
PT WHEELED OUT TO RIDE HOME. TOLERATED WELL. WILL CONTINUE TO MONITOR
--- NOTE | 2020-03-02 21:53 | MORECARE ---
CASE MANAGEMENT DISCHARGE SUMMARY PATIENT: CATHERINE BETTS UNIT: [id number] ADM DATE: 02/28/20 AGE: 64 : 59 SEX: M ROOM/BED: [facility] AUTHOR: DAMARIS JOHNSON PHYSICIAN: REFERRING PHYSICIAN: JANNA RICE MD DATE OF SERVICE: 03/02/20 Discharge Plan Patient Name: CATHERINE BETTS Facility: [facility]:[place] : 1955 Planned Disposition: Anticipated Discharge Date: Discharge Date: 03/01/2020 Expected LOS: Initial Reviewer: [email or web address] Initial Review Date: 02/28/2020 Generated: 03/02/20 10:53 pm Patient Name: CATHERINE BETTS Page 14106 at 2153 All edits/amendments must be made on the electronic document DICTATION DATE: 03/02/202152 HANDY WORKER: CANDIDA 03/02/202152 RPT#: [id number] DC DATE:03/01/20 STATUS: DIS IN [facility] [address] [place] [address] END OF REPORT
--- NOTE | 2020-03-02 22:00 | MORECARE ---
CASE MANAGEMENT DISCHARGE SUMMARY PATIENT: CATHERINE BETTS UNIT: [id number] ADM DATE: 02/28/20 AGE: 64 : 59 SEX: M [facility] AUTHOR: ELIZABETH,DOC PHYSICIAN: REFERRING PHYSICIAN: JANNA RICE MD DATE OF SERVICE: 03/02/20 Discharge Plan Patient Name: CATHERINE BETTS Facility: [facility]:[place] : 1955 Planned Disposition: Anticipated Discharge Date: Discharge Date: 03/01/2020 Expected LOS: Initial Reviewer: [email or web address] Initial Review Date: 02/28/2020 Generated: 03/02/20 11:00 pm Comments DCP- Discharge Planning Updated by [email or web address]: Shalonda Austin on 03/02/20 8:[address] LATE ENTRY 03/01/20 Patient Name: CATHERINE BETTS Admission Status: Elective Accout number: [id number] Admission Date: 02-28-2020 : 1955 Admission Diagnosis:OCCLUSION AND STENOSIS OF LEFT CAROTID ARTERY Attending: JANNA RICE Current LOS: 2 Anticipated DC Date: Planned Disposition: Primary Insurance: MEDICARE A & B Discharge Planning Comments: CM met with patient at bedside after explaining CM role and obtaining verbal consent. Patient lives at home alone where he is independent with his care and plans to return there upon discharge. Patient feels this would be a safe discharge. CM discussed availability / needs of home health and medical equipment. Patient denies any discharge needs at this time. Patient states he will have his family drive him home upon discharge. CM will continue to follow and assist as needed with discharge planning / needs. Record Label Intern: Shalonda Austin DCPIA - Discharge Planning Initial Assessment Updated by [email or web address]: Shalonda Austin on 03/02/20 9:56 pm * Is the patient Alert and Oriented? Yes * How many steps to enter\exit or inside your home? * PCP CHENG * [facility] * Preadmission Environment Home Alone * ADLs Independent * List name and contact numbers for known caregivers / representatives who currently or will assist patient after discharge: BAIG LEOANRDO [facility] - [phone] * Verbal permission to speak to the caregivers and representatives has been obtained from the patient. N/A * Community resources currently utilized None * Additional services required to return to the preadmission environment? No * Can the patient safely return to the preadmission environment? Yes * Has this patient been hospitalized within the prior 30 days at any hospital? No Last DP export: 03/02/20 8:53 pm Patient Name: CATHERINE BETTS Page [id number] at 2200 All edits/amendments must be made on the electronic document DICTATION DATE: 03/02/202199 MARKETING SERVICES REP: CANDIDA 03/02/202199 RPT#: [id number] DC DATE:03/01/20 STATUS: DIS IN [facility] [address] [place] [address] END OF REPORT
== END 2020-03-01 14:30 | disposition home or self-care (01) | DRG 39 ==
LOC: D.CVICU 05:37 → D.SDCHOLD 05:37 → D.CVICU 09:03
PROVIDERS: ADMIT Thoracic Surgery (Cardiothoracic Vascular Surgery); ATTEND Thoracic Surgery (Cardiothoracic Vascular Surgery)
PROC: 0PC00ZZ Extirpation of Matter from Sternum, Open Approach (ICD-10-PCS; 2020-02-28)
PROC: 03CL0ZZ Extirpation of Matter from Left Internal Carotid Artery, Open Approach (ICD-10-PCS; principal; 2020-02-28 07:30)
DX: I65.22 Occlusion and stenosis of left carotid artery (principal); I10 Essential (primary) hypertension; I25.10 Atherosclerotic heart disease of native coronary artery without angina pectoris; E78.5 Hyperlipidemia, unspecified; J43.9 Emphysema, unspecified

== ENCOUNTER → 2021-03-11 10:07 | Outpatient (CLI) | payer MEDICARE ==
[2020-08-30 14:45] VITALS: BMI 28.1
[~2021-03-11 10:07] MED LIST changes: +LASIX20 MG PO; +MIRALAX17 GM PO; +OMNICEF300 MG PO; +PLAVIX75 MG PO; +SENNA LAXATIVE8.6 MG PO; +ULTRAM50 MG PO
== END | disposition home or self-care (01) ==
LOC: D.US 10:07
PROVIDERS: ATTEND Thoracic Surgery (Cardiothoracic Vascular Surgery)
DX: I65.23 Occlusion and stenosis of bilateral carotid arteries (principal)